=== PATIENT | female | born 1935 | race African-American/Black ===

== ENCOUNTER 2016-08-15 09:08 | Inpatient (IN) | payer MEDICARE, MEDICAID ==
[2016-08-15] MEDS ORDERED: Sodium Chloride 0.9% 1,000 ML IV ONE (09:33)
--- NOTE | 2016-08-15 09:34 | EDM.PDOC ---
ED HPI GI/ABDOMINAL - General Chief Complaint: Gastrointestinal Problem Stated Complaint: BLOOD IN STOOL Time Seen by Provider: 08/15/16 09:30 Source of Information: Reports: Patient, Provider History Limitations: Reports: No limitations - History of Present Illness INITIAL COMMENTS - FREE TEXT/NARRATIVE: 80-year-old female sent over from [facility] where she resides. She reportedly had a dark black stool the day before yesterday which reported to the nursing staff. This precipitated lab test yesterday which revealed apparently a hemoglobin of only 7. This morning about 4:30 5:00 she had another large black stool. No associated cramps. She feels a little more short of breath than usual at rest. 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 [place] remain in place. She is on Plavix and aspirin daily. On Plavix since having the left below knee amputation. She does not take Motrin or Aleve. She reports she had a upper and lower GI endoscopy within the last 3 months which were declared to be normal. She has no problems excepting blood in his had blood transfusions in the past. Consent for blood transfusion to be signed. Symptom Onset Date: 08/13/16 (First report of a black tarry stool to the nursing staff at the [facility].) Symptom Onset Time: 04:50 (Report of second black tarry stool this morning to the nursing staff at the [facility].) Timing/Duration: Reports: Hour(s):, Day(s):, Sudden onset Location: other (I tarry stools x2 in the last 72 hours.) Quality: Reports: other Severity: moderate (Has no pain.) Context: Denies: recent surgery Associated Symptoms (-Female): Reports: bloody stools (Rodri melena stools morning), other. 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 (see below) (None) - Related Data Allergies/ADRs: Allergies Allergy/AdvReac Type Severity Reaction Status Date / Time penicillin Allergy Rash Verified 08/15/16 09:36 sulfamethoxazole Allergy UNKNOWN Verified 08/15/16 09:36 trimethoprim Allergy UNKNOWN Verified 08/15/16 09:36 tuberculin, purified protein Allergy Cannot Verified 08/15/16 09:36 deriva Remember [tuberculin,purif.prot.deriv.] codeine AdvReac Nausea and Verified 08/15/16 09:36 Vomiting Home Meds: Home Meds Aspirin 81 mg PO DAILY 04/29/15 [History] atorvaSTATin [Lipitor] 80 mg PO BEDTIME 04/29/15 [History] Acetaminophen [Tylenol] 650 mg PO Q6HR PRN 01/26/16 [History] Clopidogrel [Plavix] 75 mg PO DAILY 01/26/16 [History] Cyclobenzaprine [Flexeril] 5 mg PO Q6HR PRN 01/26/16 [History] Fluticasone/Salmeterol [Advair 250-50 Diskus] 1 puff IH BID 01/26/16 [History] Sertraline [Zoloft] 100 mg PO DAILY 01/26/16 [History] Verapamil [Calan SR] 240 mg PO BID 01/26/16 [History] Acetaminophen 650 mg PO TID 02/12/16 [History] Gabapentin [Neurontin] 300 mg PO BID 02/12/16 [History] Hydrocodone/Acetaminophen [Kent 5-325] 1 tab PO Q4H PRN 02/12/16 [History] Sennosides [Senna] 1 tab PO BID PRN 02/13/16 [History] Polyethylene Glycol 3350 [MiraLAX] 17 gm PO DAILY PRN #30 packet 02/14/16 [Rx] Acetaminophen [Tylenol] 650 mg PO TID 04/30/16 [History] Bisacodyl [Dulcolax] 10 mg RC DAILY PRN 04/30/16 [History] Furosemide [Lasix] 80 mg PO BID 04/30/16 [History] Hydrocodone/Acetaminophen [Kent 5-325] 1 each PO BEDTIME 04/30/16 [History] Minocycline [Minocin] 100 mg PO BID 04/30/16 [History] buPROPion [buPROPion XL] 150 mg PO DAILY 05/02/16 [History] Insulin Aspart [NovoLOG] 1 dose SQ ASDIRECTED 05/06/16 [History] Insulin Glargine,Hum.Rec.Anlog [Lantus Solostar] 10 units SQ BEDTIME 05/06/16 [ History] Past Medical History HEENT History: Reports: Impaired vision, Other (see below) Other HEENT History: Left "eye disease" Cardiovascular History: Reports: High cholesterol, Hypertension Respiratory History: Reports: Bronchitis, recurrent, COPD Gastrointestinal History: Reports: GERD 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 Has known renal insufficiency as well.) Hematologic History: Reports: Anemia Dermatologic History: Reports: Decubitus ulcer - Infectious Disease History Infectious Disease History: Reports: MRSA - Past Surgical History HEENT Surgical History: Reports: Adenoidectomy, Tonsillectomy Other HEENT Surgeries/Procedures: Adnoidectomy Cardiovascular Surgical History: Reports: Vascular surgery, Other (see below) ( Lt below knee amputation in November 2015 with revision 2 weeks ago.) Other Cardiovascular Surgeries/Procedures: LLE amputee GI Surgical History: Reports: Appendectomy Other Endocrine Surgeries/Procedures: Right femoral popliteal grafting. Done 17 years ago in [place]. Neurological Surgical History: Reports: None Musculoskeletal Surgical History: Reports: Amputation, Other (see below) Other Musculoskeletal Surgeries/Procedures:: left below the knee amputation Dermatological Surgical History: Reports: None Social & Family History - Family History Cardiac: Reports: Aneurysm, Bypass, Hypertension, [place], Stent Respiratory: Reports: Asthma, Sleep apnea Musculoskeletal: Reports: Arthritis Neurological: Reports: Cerebral aneurysms, TIA Psychiatric: Reports: ADHD Endocrine/Metabolic: Reports: Diabetes, type II Oncologic: Reports: Colon - Tobacco Use Smoking Status *Q: Former Smoker (quit 3 months ago. smoked for 40 years .5 ppd) Years of Tobacco use: 40 Packs/Tins Daily: 0.2 Used Tobacco, but Quit: Yes Month Tobacco Last Used: november 2015 Second Hand Smoke Exposure: No - Caffeine Use Caffeine Use: Reports: Coffee, Soda Caffeine Use Comment: seldom drink soda - Alcohol Use Days Per Week of Alcohol Use: 0 - Recreational Drug Use Recreational Drug Use: No - Living Situation & Occupation Living situation: Reports: extended care facility Occupation: disabled ED ROS GENERAL - Review of Systems Review Of Systems: See Below Constitutional: Reports: weakness, fatigue. Denies: fever, chills, malaise, decreased appetite, weight loss HEENT: Reports: No symptoms Respiratory: Reports: Shortness of Breath. Denies: Wheezing, Pleuritic Chest Pain, Cough, Sputum, Hemoptysis Cardiovascular: Reports: Blood pressure problem (Usually has hypertension.). Denies: Chest pain, Dyspnea on exertion, Edema, Lightheadedness, Palpitations Endocrine: Reports: fatigue GI/Abdominal: Reports: Black stool. Denies: Abdominal pain : Reports: frequency Musculoskeletal: Reports: other (Arthritis in her back. She has a left below- knee amputation done November 2015 revision done 2 weeks ago. ) Skin: Reports: bruising (Was easily multiple bruises appreciated on her thighs.) Neurological: Reports: No Symptoms Psychiatric: Reports: No symptoms ED EXAM, GI/ABD - Physical Exam Exam: See Below Exam Limited By: No limitations General Appearance: alert, WD/WN, no apparent distress, other (Tongue is mildly white.) Eyes: bilateral: pale conjunctiva (Mild bilaterally) Ears: normal TMs Throat/Mouth: Normal inspection, Normal lips, Normal oropharynx, Other Head: atraumatic (Tongue is white and the), normocephalic Neck: normal inspection, supple, non-tender, full range of motion. No: lymphadenopathy (L), lymphadenopathy (R) Respiratory/Chest: no respiratory distress, lungs clear, normal breath sounds, no accessory muscle use Cardiovascular: regular rate, rhythm, no edema, no gallop, no murmur, no rub, other (Has good ulnar and radial pulses bilaterally.) GI/Abdominal: normal bowel sounds, soft, non tender, no organomegaly, other ( Abdomen is mildly distended and firm to palpation.) Rectal (Female) Exam: Black stool, Heme - stool Back Exam: normal inspection, full range of motion. No: CVA tenderness (L), CVA tenderness (R) Extremities: normal inspection, normal range of motion, non-tender, no pedal edema, normal capillary refill, other (Has barely palpable pulses dorsalis pedis on the right foot. She has a below-knee amputation on the left side. Bowels are still present in the wound left below-knee amputation and the wound is healing adequately.) Neurological: alert, oriented, CN II-XII intact, normal cognition Psychiatric: normal affect, normal mood Skin Exam: Warm, Intact, Pallor (Mild). No: Normal color EKG INTERPRETATION EKG Date: 08/15/16 Time: 09:50 Rhythm: NSR (First degree AV block.) Rate (beats/min): 86 Ambler: normal P-wave: present QRS: other (Q-wave in lead V1 in your Q-wave in V2. Consider old anteroseptal myocardial infarction. Decreased voltage in the precordial and limb leads compatible COPD pattern.) ST-T: normal QT: prolonged (Minimally.) Course - Vital Signs Last Recorded V/S: Last Vital Signs Temp 36.8 C 08/15/16 12:52 Pulse 92 08/15/16 12:52 Resp 18 08/15/16 12:52 BP 143/94 H 08/15/16 12:52 Pulse Ox 92 L 08/15/16 09:35 Orthostatic Blood Pressure [ 131/57 Supine] Orthostatic Blood Pressure [ 127/61 Sitting] - Orders/Labs/Meds Orders: Active Orders 24 hr Category Date Time Status Admission Status [Patient Status] [ADT] Routine ADT 08/15/16 13:11 Ordered EKG Documentation Completion [RC] STAT Care 08/15/16 09:31 Active Orthostatic Vital Signs [RC] ASDIRECTED Care 08/15/16 09:33 Active PACKED CELLS [RED BLOOD CELLS LP] [BBK] Stat Lab 08/15/16 10:30 Results TYPE AND SCREEN [BBK] Stat Lab 08/15/16 10:30 Results URINALYSIS W/MICROSCOPIC [UA W/MICROSCOPIC] [URIN] Stat Lab 08/15/16 11:57 Results Labs: Laboratory Tests 08/15/16 08/15/16 08/15/16 Range/Units 10:30 10:30 10:30 WBC 6.43 (3.98-10.04) K/mm3 RBC 3.01 L (3.98-5.22) M/mm3 Hgb 7.4 L (11.2-15.7) gm/L Hct 24.4 L (34.1-44.9) % MCV 81.1 (79.4-94.8) fl MCH 24.6 L (25.6-32.2) pg MCHC 30.3 L (32.2-35.5) g/dl RDW Std Deviation 49.2 H (36.4-46.3) fL Plt Count 397 H (182-369) K/mm3 MPV 8.7 L (9.4-12.3) fl Neutrophils % (Manual) 68 H (40-60) % Band Neutrophils % 0 (0-10) % Lymphocytes % (Manual) 28 (20-40) % Atypical Lymphs % 0 % Monocytes % (Manual) 2 (2-10) % Eosinophils % (Manual) 1 (0.7-5.8) % Basophils % (Manual) 1 (0.1-1.2) Platelet Estimate Adequate Hypochromasia 1+ slight Microcytosis 1+ slight Target Cells 1+ slight RBC Morph Comment Not Reportable PT 10.7 (8.0-13.0) SECONDS INR 0.98 APTT 25 (22-36) SECONDS Sodium 141 (136-145) mEq/L Potassium 3.9 (3.5-5.1) mEq/L Chloride 105 (98-107) mEq/L Carbon Dioxide 25 (21-32) mEq/L Anion Gap 14.9 (5-15) BUN 45 H (7-18) mg/dL Creatinine 1.9 H (0.55-1.02) mg/dL Est Cr Clr Drug Dosing 19.30 mL/min Estimated GFR (MDRD) 31 (>60) mL/min BUN/Creatinine Ratio 23.7 H (14-18) Glucose 206 H (83-115) mg/dL Calcium 8.7 (8.5-10.1) mg/dL Total Bilirubin 0.2 (0.2-1.0) mg/dL AST 16 (15-37) U/L ALT 19 (14-59) U/L Alkaline Phosphatase 85 (46-116) U/L Troponin I < 0.017 (0.00-0.056) ng/mL C-Reactive Protein 1.4 H* (<1.0) mg/dL B-Natriuretic Peptide (0-100) pg/mL Total Protein 6.6 (6.4-8.2) g/dl Albumin 3.2 L (3.4-5.0) g/dl Globulin 3.4 gm/dL Albumin/Globulin Ratio 0.9 L (1-2) Urine Color (Yellow) Urine Appearance (Clear) Urine pH (5.0-8.0) Ur Specific [place] (1.005-1.030) Urine Protein (Negative) Urine Glucose (UA) (Negative) Urine Ketones (Negative) Urine Occult Blood (Negative) Urine Nitrite (Negative) Urine Bilirubin (Negative) Urine Urobilinogen (0.2-1.0) Ur Leukocyte Esterase (Negative) H. pylori IgG Antibody (NEGATIVE) Blood Type Gel Antibody Screen Crossmatch 08/15/16 08/15/16 08/15/16 Range/Units 10:30 10:30 10:30 WBC (3.98-10.04) K/mm3 RBC (3.98-5.22) M/mm3 Hgb (11.2-15.7) gm/L Hct (34.1-44.9) % MCV (79.4-94.8) fl MCH (25.6-32.2) pg MCHC (32.2-35.5) g/dl RDW Std Deviation (36.4-46.3) fL Plt Count (182-369) K/mm3 MPV (9.4-12.3) fl Neutrophils % (Manual) (40-60) % Band Neutrophils % (0-10) % Lymphocytes % (Manual) (20-40) % Atypical Lymphs % % Monocytes % (Manual) (2-10) % Eosinophils % (Manual) (0.7-5.8) % Basophils % (Manual) (0.1-1.2) Platelet Estimate Hypochromasia Microcytosis Target Cells RBC Morph Comment PT (8.0-13.0) SECONDS INR APTT (22-36) SECONDS Sodium (136-145) mEq/L Potassium (3.5-5.1) mEq/L Chloride (98-107) mEq/L Carbon Dioxide (21-32) mEq/L Anion Gap (5-15) BUN (7-18) mg/dL Creatinine (0.55-1.02) mg/dL Est Cr Clr Drug Dosing mL/min Estimated GFR (MDRD) (>60) mL/min BUN/Creatinine Ratio (14-18) Glucose (83-115) mg/dL Calcium (8.5-10.1) mg/dL Total Bilirubin (0.2-1.0) mg/dL AST (15-37) U/L ALT (14-59) U/L Alkaline Phosphatase (46-116) U/L Troponin I (0.00-0.056) ng/mL C-Reactive Protein (<1.0) mg/dL B-Natriuretic Peptide 266 H (0-100) pg/mL Total Protein (6.4-8.2) g/dl Albumin (3.4-5.0) g/dl Globulin gm/dL Albumin/Globulin Ratio (1-2) Urine Color (Yellow) Urine Appearance (Clear) Urine pH (5.0-8.0) Ur Specific [place] (1.005-1.030) Urine Protein (Negative) Urine Glucose (UA) (Negative) Urine Ketones (Negative) Urine Occult Blood (Negative) Urine Nitrite (Negative) Urine Bilirubin (Negative) Urine Urobilinogen (0.2-1.0) Ur Leukocyte Esterase (Negative) H. pylori IgG Antibody Negative (NEGATIVE) Blood Type O POSITIVE Gel Antibody Screen Negative Crossmatch See Detail 08/15/16 Range/Units 11:57 WBC (3.98-10.04) K/mm3 RBC (3.98-5.22) M/mm3 Hgb (11.2-15.7) gm/L Hct (34.1-44.9) % MCV (79.4-94.8) fl MCH (25.6-32.2) pg MCHC (32.2-35.5) g/dl RDW Std Deviation (36.4-46.3) fL Plt Count (182-369) K/mm3 MPV (9.4-12.3) fl Neutrophils % (Manual) (40-60) % Band Neutrophils % (0-10) % Lymphocytes % (Manual) (20-40) % Atypical Lymphs % % Monocytes % (Manual) (2-10) % Eosinophils % (Manual) (0.7-5.8) % Basophils % (Manual) (0.1-1.2) Platelet Estimate Hypochromasia Microcytosis Target Cells RBC Morph Comment PT (8.0-13.0) SECONDS INR APTT (22-36) SECONDS Sodium (136-145) mEq/L Potassium (3.5-5.1) mEq/L Chloride (98-107) mEq/L Carbon Dioxide (21-32) mEq/L Anion Gap (5-15) BUN (7-18) mg/dL Creatinine (0.55-1.02) mg/dL Est Cr Clr Drug Dosing mL/min Estimated GFR (MDRD) (>60) mL/min BUN/Creatinine Ratio (14-18) Glucose (83-115) mg/dL Calcium (8.5-10.1) mg/dL Total Bilirubin (0.2-1.0) mg/dL AST (15-37) U/L ALT (14-59) U/L Alkaline Phosphatase (46-116) U/L Troponin I (0.00-0.056) ng/mL C-Reactive Protein (<1.0) mg/dL B-Natriuretic Peptide (0-100) pg/mL Total Protein (6.4-8.2) g/dl Albumin (3.4-5.0) g/dl Globulin gm/dL Albumin/Globulin Ratio (1-2) Urine Color Yellow (Yellow) Urine Appearance Clear (Clear) Urine pH 6.5 (5.0-8.0) Ur Specific [place] 1.020 (1.005-1.030) Urine Protein Negative (Negative) Urine Glucose (UA) Negative (Negative) Urine Ketones Negative (Negative) Urine Occult Blood Negative (Negative) Urine Nitrite Negative (Negative) Urine Bilirubin Negative (Negative) Urine Urobilinogen 0.2 (0.2-1.0) Ur Leukocyte Esterase Trace H (Negative) H. pylori IgG Antibody (NEGATIVE) Blood Type Gel Antibody Screen Crossmatch Meds: Medications Discontinued Medications Generic Name Dose Route Start Last Admin Trade Name Freq PRN Reason Stop Dose Admin Sodium Chloride 1,000 mls @ 500 mls/hr 08/15/16 09:33 08/15/16 10:44 Normal Saline IV 08/15/16 11:32 500 mls/hr ONETIME ONE Administration Sodium Chloride Confirm 08/15/16 11:55 Normal Saline Administered 08/15/16 11:56 Dose 500 mls @ as directed .ROUTE .ST-MED ONE - Radiology Interpretation Free Text/Narrative:: 80-year-old female presents to the ED from [facility] where she was discovered to have a hemoglobin of only 7 yesterday and had a further black tarry stool earlier this morning. She had one the day prior as well. She is on Plavix and on aspirin daily. Does not use Motrin or to Aleve. It is believed therefore she likely suffered a upper GI bleed. She reports endoscopy of both upper and lower GI tracts were carried out about 3 months ago and no abnormalities were identified. Plan routine labs to be done crossmatched for 4 units of packed RBCs sees. She has no contraindications to receiving blood transfusion consent will be signed. I believe it'll be normal saline at 500 mils per hour. - Re-Assessments/Exams Free Text/Narrative Re-Assessment/Exam: 08/15/16 11:12 chest x-ray done portably reveals moderate cardiomegaly. There is a tortuous thoracic aorta. Visualized portions of lung corbin appear clear. Hemoglobin is reported been reported at 7.4. White count 6.43. Differential pending platelets are good at 397,000. Coags show PT of 10.7 INR 0.98 PTT is 25. The remainder the labs are pending. 08/15/16 11:22 chemistry reveals a sodium of 141 potassium of 3.9. Anion gap is 14.9 BUN is elevated at 45 creatinine is 1.9 EGFR is 3190 stage III chronic kidney disease. Glucose is 206 now. CRP is 1.4. 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 08/15/16 13:13 spoke with and not production lapping machine operator hospitalist and the patient will be admitted to the [facility] surgery floor on telemetry. ID is currently available to begin transfusions Departure - Departure Time of Disposition: 13:14 Disposition: Admitted As Inpatient 68 Condition: fair, serious Clinical Impression: Gastrointestinal hemorrhage Qualifiers: GI bleed type/associated pathology: unspecified gastrointestinal hemorrhage type Qualified Code(s): K92.2 - Gastrointestinal hemorrhage, unspecified Referrals: Kalpesh Pak MD [Primary Care Provider] - Forms: ED Department Discharge - My Orders Last 24 Hours: My Active Orders 08/15/16 09:31 EKG Documentation Completion [RC] STAT 08/15/16 09:33 Orthostatic Vital Signs [RC] ASDIRECTED 08/15/16 10:30 PACKED CELLS [RED BLOOD CELLS LP] [BBK] Stat TYPE AND SCREEN [BBK] Stat 08/15/16 11:57 URINALYSIS W/MICROSCOPIC [UA W/MICROSCOPIC] [URIN] Stat 08/15/16 13:11 Admission Status [Patient Status] [ADT] Routine - Assessment/Plan Last 24 Hours: My Active Orders 08/15/16 09:31 EKG Documentation Completion [RC] STAT 08/15/16 09:33 Orthostatic Vital Signs [RC] ASDIRECTED 08/15/16 10:30 PACKED CELLS [RED BLOOD CELLS LP] [BBK] Stat TYPE AND SCREEN [BBK] Stat 08/15/16 11:57 URINALYSIS W/MICROSCOPIC [UA W/MICROSCOPIC] [URIN] Stat 08/15/16 13:11 Admission Status [Patient Status] [ADT] Routine
--- NOTE | 2016-08-15 11:30 | CR ---
Chest: Portable view of the chest was obtained. Comparison: Previous chest x-ray of 01/26/16. Heart size appears within normal limits for portable technique. Tortuous thoracic aorta is seen. Lungs are clear were no acute infiltrates. Bony structures are grossly intact. Impression: 1. Nothing acute is identified on portable chest x-ray. Diagnostic code #2
[2016-08-15] MEDS ORDERED: Sodium Chloride 0.9% 500 ML ONE (11:55)
--- NOTE | 2016-08-15 12:33 | PCM.HP ---
H&P History of Present Illness - General Date of Service: 08/15/16 Source of Information: Patient, Old records, Provider, RN notes reviewed History Limitations: Reports: Physical impairment - History of Present Illness Initial Comments - Free Text/Narative: This is a 80 yo AA female with significant past medical hx/o who is known to me from previous admission, comes in today with complaints of black tarry stools and was found anemic with a Hgb level of 7. He admits to some shortness of breath, generalized weakness and fatigue. Patient was admitted back in April with similar presentation. She received blood transfusions and underwent EGD without abnormal findings. Patient is currently on ASA/Plavix for her CAD/HLD. She denies being on any anticoags or taking over the counter NSAIDs. Patient is full code. - Related Data Allergies/Adverse Reactions: Allergies Allergy/AdvReac Type Severity Reaction Status Date / Time penicillin Allergy Rash Verified 08/15/16 15:32 sulfamethoxazole Allergy UNKNOWN Verified 08/15/16 15:32 trimethoprim Allergy UNKNOWN Verified 08/15/16 15:32 tuberculin, purified protein Allergy Cannot Verified 08/15/16 15:32 deriva Remember [tuberculin,purif.prot.deriv.] codeine AdvReac Nausea and Verified 08/15/16 15:32 Vomiting Home Medications: Home Meds Aspirin 81 mg PO DAILY 04/29/15 [History] atorvaSTATin [Lipitor] 80 mg PO BEDTIME 04/29/15 [History] Acetaminophen [Tylenol] 650 mg PO Q6HR PRN 01/26/16 [History] Clopidogrel [Plavix] 75 mg PO DAILY 01/26/16 [History] Cyclobenzaprine [Flexeril] 5 mg PO Q6HR PRN 01/26/16 [History] Sertraline [Zoloft] 50 mg PO DAILY 01/26/16 [History] Verapamil [Calan SR] 240 mg PO BID 01/26/16 [History] Gabapentin [Neurontin] 300 mg PO BID 02/12/16 [History] Hydrocodone/Acetaminophen [[place] 5-325] 1 tab PO Q4H PRN 02/12/16 [History] Sennosides [Senna] 1 tab PO BID PRN 02/13/16 [History] Polyethylene Glycol 3350 [MiraLAX] 17 gm PO DAILY PRN #30 packet 02/14/16 [Rx] Bisacodyl [Dulcolax] 10 mg RC DAILY PRN 04/30/16 [History] Furosemide [Lasix] 80 mg PO BID 04/30/16 [History] Hydrocodone/Acetaminophen [[place] 5-325] 1 each PO BEDTIME 04/30/16 [History] Insulin Glargine,Hum.Rec.Anlog [Lantus Solostar] 14 units SQ DAILY 05/06/16 [ History] Budesonide/Formoterol [Symbicort 160-4.5 MCG] 2 puff INH BID 08/15/16 [History] Sennosides [Senna] 1 tab PO BID 08/15/16 [History] buPROPion [Wellbutrin] 37.5 mg PO BID 08/15/16 [History] Past Medical History HEENT History: Reports: Impaired vision, Other (see below) Other HEENT History: Left "eye disease" Cardiovascular History: Reports: High cholesterol, Hypertension Respiratory History: Reports: Bronchitis, recurrent, COPD Gastrointestinal History: Reports: GERD [employer] History: Reports: Musculoskeletal History: Reports: Osteoarthritis Neurological History: Reports: Neuropathy, diabetic Psychiatric History: Reports: None Endocrine/Metabolic History: Reports: Diabetes, type II, Obesity/BMI 30+, Other (see below) (Has resulted in severe peripheral vascular disease with 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 Has known renal insufficiency as well.) Hematologic History: Reports: Anemia Dermatologic History: Reports: Decubitus ulcer - Infectious Disease History Infectious Disease History: Reports: MRSA - Past Surgical History HEENT Surgical History: Reports: Adenoidectomy, Tonsillectomy Other HEENT Surgeries/Procedures: Adnoidectomy Cardiovascular Surgical History: Reports: Vascular surgery, Other (see below) ( Lt below knee amputation in November 2015 with revision 2 weeks ago.) Other Cardiovascular Surgeries/Procedures: LLE amputee GI Surgical History: Reports: Appendectomy Other Endocrine Surgeries/Procedures: Right femoral popliteal grafting. Done 17 years ago in [place]. Neurological Surgical History: Reports: None Musculoskeletal Surgical History: Reports: Amputation, Other (see below) Other Musculoskeletal Surgeries/Procedures:: left below the knee amputation Dermatological Surgical History: Reports: None Social & Family History - Family History Cardiac: Reports: Aneurysm, Bypass, Hypertension, MT, Stent Respiratory: Reports: Asthma, Sleep apnea Musculoskeletal: Reports: Arthritis Neurological: Reports: Cerebral aneurysms, TIA Psychiatric: Reports: ADHD Endocrine/Metabolic: Reports: Diabetes, type II Oncologic: Reports: Colon - Tobacco Use Smoking Status *Q: Former Smoker (quit 3 months ago. smoked for 40 years .5 ppd) Years of Tobacco use: 40 Packs/Tins Daily: 0.2 Used Tobacco, but Quit: Yes Month Tobacco Last Used: november 2015 Tobacco Use Comment: Occasionally smokes "1-2 PUFFS" off of someone's cigarette if she is around another smoker. Second Hand Smoke Exposure: No - Caffeine Use Caffeine Use: Reports: Coffee, Soda Caffeine Use Comment: seldom drink soda - Alcohol Use Days Per Week of Alcohol Use: 0 - Recreational Drug Use Recreational Drug Use: No - Living Situation & Occupation Living situation: Reports: extended care facility Occupation: disabled H&P Review of Systems - Review of Systems: Review Of Systems: See Below General: Reports: weakness, fatigue. Denies: fever, chills HEENT: Reports: no symptoms Pulmonary: Reports: Shortness of Breath Cardiovascular: Reports: blood pressure problem. Denies: chest pain, palpitations, dyspnea on exertion, lightheadedness, syncope Gastrointestinal: Reports: Black stool. Denies: Abdominal pain, Hematochezia, Nausea, Vomiting Genitourinary: Reports: frequency Musculoskeletal: Reports: no symptoms Skin: Denies: pallor, rash, erythema Psychiatric: Denies: depression, anxiety, hallucinations, suicidal ideation Neurological: Reports: Difficulty Walking, Gait Disturbance. Denies: Confusion , Dizziness, Seizure, Syncope Hematologic/Lymphatic: Reports: anemia, easy bleeding. Denies: easy bruising Immunologic: Reports: no symptoms Exam - Exam Exam: See Below - Vital Signs Vital Signs: Last Vital Signs Temp 36.8 C 08/15/16 12:14 Pulse 91 08/15/16 12:14 Resp 18 08/15/16 12:14 BP 128/55 L 08/15/16 12:14 Pulse Ox 92 L 08/15/16 09:35 Orthostatic Blood Pressure [ 131/57 Supine] Orthostatic Blood Pressure [ 127/61 Sitting] Weight: 83.461 kg - Exam General: alert, oriented, cooperative, mild distress, lethargic, other (Obese) HEENT: Conjunctiva clear, EACs clear, Hearing intact, Mucosa moist & pink, Nares patent, Normal nasal septum, Posterior pharynx clear, Pupils equal, Pupils reactive Neck: supple, trachea midline, 2+ carotid pulse wo bruit, full range of motion Lungs: Clear to auscultation, Normal respiratory effort Cardiovascular: regular rate, regular rhythm Abdomen: normal bowel sounds, soft. No: organomegaly (Female) Exam: Deferred Rectal (Female) Exam: Deferred Back Exam: normal inspection, decreased range of motion Extremities: normal inspection, normal pulses, other (left leg amputation). No : clubbing, cyanosis, calf tenderness, edema Peripheral Pulses: 2+: posterior tibial (R), dorsalis pedis (R) Skin: warm, dry, intact Neuro Extensive - Mental Status: oriented x3, normal cognition, memory intact Neuro Extensive - Motor, Sensory, Reflexes: CN II-XII intact, abnormal gait Psychiatric: alert, normal affect, normal mood - Patient Data Lab Results last 24 hrs: Laboratory Results - last 24 hr 08/15/16 08/15/16 08/15/16 Range/Units 10:30 10:30 10:30 WBC 6.43 (3.98-10.04) K/mm3 RBC 3.01 L (3.98-5.22) M/mm3 Hgb 7.4 L (11.2-15.7) gm/L Hct 24.4 L (34.1-44.9) % MCV 81.1 (79.4-94.8) fl MCH 24.6 L (25.6-32.2) pg MCHC 30.3 L (32.2-35.5) g/dl RDW Std Deviation 49.2 H (36.4-46.3) fL Plt Count 397 H (182-369) K/mm3 MPV 8.7 L (9.4-12.3) fl Neutrophils % (Manual) 68 H (40-60) % Band Neutrophils % 0 (0-10) % Lymphocytes % (Manual) 28 (20-40) % Atypical Lymphs % 0 % Monocytes % (Manual) 2 (2-10) % Eosinophils % (Manual) 1 (0.7-5.8) % Basophils % (Manual) 1 (0.1-1.2) Platelet Estimate Adequate Hypochromasia 1+ slight Microcytosis 1+ slight Target Cells 1+ slight RBC Morph Comment Not Reportable PT 10.7 (8.0-13.0) SECONDS INR 0.98 APTT 25 (22-36) SECONDS Sodium 141 (136-145) mEq/L Potassium 3.9 (3.5-5.1) mEq/L Chloride 105 (98-107) mEq/L Carbon Dioxide 25 (21-32) mEq/L Anion Gap 14.9 (5-15) BUN 45 H (7-18) mg/dL Creatinine 1.9 H (0.55-1.02) mg/dL Est Cr Clr Drug Dosing 19.30 mL/min Estimated GFR (MDRD) 31 (>60) mL/min BUN/Creatinine Ratio 23.7 H (14-18) Glucose 206 H (83-115) mg/dL Calcium 8.7 (8.5-10.1) mg/dL Total Bilirubin 0.2 (0.2-1.0) mg/dL AST 16 (15-37) U/L ALT 19 (14-59) U/L Alkaline Phosphatase 85 (46-116) U/L Troponin I < 0.017 (0.00-0.056) ng/mL C-Reactive Protein 1.4 H* (<1.0) mg/dL B-Natriuretic Peptide (0-100) pg/mL Total Protein 6.6 (6.4-8.2) g/dl Albumin 3.2 L (3.4-5.0) g/dl Globulin 3.4 gm/dL Albumin/Globulin Ratio 0.9 L (1-2) H. pylori IgG Antibody (NEGATIVE) Blood Type Gel Antibody Screen Crossmatch 08/15/16 08/15/16 08/15/16 Range/Units 10:30 10:30 10:30 WBC (3.98-10.04) K/mm3 RBC (3.98-5.22) M/mm3 Hgb (11.2-15.7) gm/L Hct (34.1-44.9) % MCV (79.4-94.8) fl MCH (25.6-32.2) pg MCHC (32.2-35.5) g/dl RDW Std Deviation (36.4-46.3) fL Plt Count (182-369) K/mm3 MPV (9.4-12.3) fl Neutrophils % (Manual) (40-60) % Band Neutrophils % (0-10) % Lymphocytes % (Manual) (20-40) % Atypical Lymphs % % Monocytes % (Manual) (2-10) % Eosinophils % (Manual) (0.7-5.8) % Basophils % (Manual) (0.1-1.2) Platelet Estimate Hypochromasia Microcytosis Target Cells RBC Morph Comment PT (8.0-13.0) SECONDS INR APTT (22-36) SECONDS Sodium (136-145) mEq/L Potassium (3.5-5.1) mEq/L Chloride (98-107) mEq/L Carbon Dioxide (21-32) mEq/L Anion Gap (5-15) BUN (7-18) mg/dL Creatinine (0.55-1.02) mg/dL Est Cr Clr Drug Dosing mL/min Estimated GFR (MDRD) (>60) mL/min BUN/Creatinine Ratio (14-18) Glucose (83-115) mg/dL Calcium (8.5-10.1) mg/dL Total Bilirubin (0.2-1.0) mg/dL AST (15-37) U/L ALT (14-59) U/L Alkaline Phosphatase (46-116) U/L Troponin I (0.00-0.056) ng/mL C-Reactive Protein (<1.0) mg/dL B-Natriuretic Peptide 266 H (0-100) pg/mL Total Protein (6.4-8.2) g/dl Albumin (3.4-5.0) g/dl Globulin gm/dL Albumin/Globulin Ratio (1-2) H. pylori IgG Antibody Negative (NEGATIVE) Blood Type O POSITIVE Gel Antibody Screen Negative Crossmatch See Detail Result Diagrams: 08/15/16 10:30 08/15/16 10:30 *Q Meaningful Use (ADM) - VTE *Q VTE Criteria *Q: - Stroke *Q Stroke Criteria *Q: - AMI *Q AMI Criteria *Q: Problem List Initiated/Reviewed/Updated: Yes Orders Last 24hrs: Active Orders 24 hr Category Date Time Status EKG Documentation Completion [RC] STAT Care 08/15/16 09:31 Active Orthostatic Vital Signs [RC] ASDIRECTED Care 08/15/16 09:33 Active PACKED CELLS [RED BLOOD CELLS LP] [BBK] Stat Lab 08/15/16 10:30 Results TYPE AND SCREEN [BBK] Stat Lab 08/15/16 10:30 Results URINALYSIS W/MICROSCOPIC [UA W/MICROSCOPIC] [URIN] Stat Lab 08/15/16 12:20 Ordered Assessment/Plan Comment:: Assessment/Plan: Acute: Anemia 2/2 GI Bleed - No hx/o hemorrhoids or diverticulosis - This is her 2nd episode - Hgb is 7.4 - She was admitted on 04/30/2016 with similar presentation; had an EGD with benign findings - Was on NSAIDs, Plavix and ASA in the past; now she is only on ASA/Plavix - Consulted Dr. Ferrara for further evla GI Bleed - 4 units of PRBC has been ordered for her while in ED - Hold antiplatelet for now - Will monitor H/H - GS consult Chronic: Impaired Vision CAD w/ Stents HLD HTN COPD GERD PVD CKD Stage 4 OA/Muscle Spasm DM w/ Neuropathy Hx/o Decubitus Ulcer S/p Left Leg Amputation (BKA) Anxiety/Depression Plan: Admit to Med-Surg Routine AM Labs Resume Home Meds Accu-check and ISS AM/HS Hold ASA and Plavix DVT ppx: SCDs GI ppx: PPI Consult Dr. Ferrara PT/OT consult SW/CM for d/c planning Code status:1
[2016-08-15] MEDS ORDERED: Albuterol/Ipratropium 3.0-0.5 MG/3 ML Neb Soln NEB PRN (13:37)
[2016-08-15] MEDS ORDERED: Polyethylene Glycol 3350 Powder 17 GM Packet PO PRN ×2 (13:37→13:46)
[2016-08-15] MEDS ORDERED: Bisacodyl 5 MG Tab PO PRN (13:37)
[2016-08-15] MEDS ORDERED: Acetaminophen 325 MG Tab PO PRN ×2 (13:37→13:46)
[2016-08-15] MEDS ORDERED: HYDROmorphone 0.5 MG/0.5 ML Syringe IVPUSH PRN (13:37)
[2016-08-15] MEDS ORDERED: Ondansetron 4 MG/2 ML SDV IV PRN (13:37)
[2016-08-15] MEDS ORDERED: Acetaminophen/HYDROcodone 325-5 MG Tab PO PRN ×2 (13:37→13:46)
[2016-08-15] MEDS ORDERED: Promethazine 12.5 MG in Sodium Chloride 0.9% 50 ML IV PRN (13:37)
[2016-08-15] MEDS ORDERED: Dextrose 5%-0.45% NaCl 1,000 ML IV SCH (13:45)
[2016-08-15] MEDS ORDERED: Bisacodyl 10 MG Supp RECTAL PRN (13:46)
[2016-08-15] MEDS ORDERED: Cyclobenzaprine 10 MG Tab PO PRN (13:46)
[2016-08-15] MEDS ORDERED: Sennosides 8.6 MG Tab PO PRN (13:46)
--- NOTE | 2016-08-15 16:00 | PCM.SURGPN ---
- General Info Date of Service: 08/15/16 - Patient Data Vitals - most recent: Last Vital Signs Temp 98.5 F 08/15/16 14:37 Pulse 89 08/15/16 14:37 Resp 16 08/15/16 14:37 BP 145/76 H 08/15/16 14:37 Pulse Ox 97 08/15/16 14:37 Weight - most recent: 85.445 kg I&O - last 24 hours: Intake & Output 08/14/16 08/15/16 08/15/16 23:59 07:59 15:59 Intake Total 317 Balance 317 Med Orders - Current: Current Medications Acetaminophen (Tylenol) 650 mg PO Q4H PRN PRN Reason: Pain (Mild 1-3)/fever Acetaminophen/Hydrocodone Bitart ([place] 325-5 Mg) 1 tab PO Q4H PRN PRN Reason: Pain (moderate 4-6) Acetaminophen/Hydrocodone Bitart ([place] 325-5 Mg) 1 tab PO BEDTIME VIKRAM Albuterol/Ipratropium (Duoneb 3.0-0.5 Mg/3 Ml) 3 ml NEB Q4H PRN PRN Reason: Shortness Of Breath/wheezing Bisacodyl (Dulcolax) 5 mg PO DAILY PRN PRN Reason: Constipation Bisacodyl (Dulcolax) 10 mg RECTAL DAILY PRN PRN Reason: Constipation Bupropion HCl (Wellbutrin Xl) 37.5 mg PO BID VIKRAM Bupropion HCl (Wellbutrin) 37.5 mg PO BID VIKRAM Cyclobenzaprine HCl (Flexeril) 5 mg PO Q6H PRN PRN Reason: Muscle Spasm Furosemide (Lasix) 80 mg PO BID VIKRAM Gabapentin (Neurontin) 300 mg PO BID [facility] Hydromorphone HCl (Dilaudid) 0.25 mg IVPUSH Q2H PRN PRN Reason: Pain (severe 7-10) Promethazine HCl 12.5 mg/ (Sodium Chloride) 50.5 mls @ 100 mls/hr IV Q6H PRN PRN Reason: Nausea/Vomiting Dextrose/Sodium Chloride (Dextrose 5%-1/2 Ns) 1,000 mls @ 125 mls/hr IV ASDIRECTED [facility] Insulin Detemir (Levemir) 7 unit SUBCUT BID VIKRAM Mometasone Furoate/Formoterol Fumar (Dulera 200-5 Mcg) 0 puff IH BID VIKRAM Ondansetron HCl (Zofran) 4 mg IV Q6H PRN PRN Reason: Nausea/Vomiting Pantoprazole Sodium (Protonix Iv) 40 mg IV Q12HR VIKRAM Polyethylene Glycol (Miralax) 17 gm PO DAILY PRN PRN Reason: Constipation Rosuvastatin Calcium (Crestor) 20 mg PO DAILY@1500 [facility] Senna (Senna) 8.6 mg PO BID PRN PRN Reason: Constipation Senna (Senna) 8.6 mg PO BID VIKRAM Senna/Docusate Sodium (Senna Plus) 1 tab PO BID PRN PRN Reason: Constipation Sertraline HCl (Zoloft) 50 mg PO DAILY VIKRAM Temazepam (Restoril) 7.5 mg PO BEDTIME PRN PRN Reason: Sleep Verapamil HCl (Calan Sr) 240 mg PO BID VIKRAM Discontinued Medications Acetaminophen (Tylenol) 650 mg PO Q6HR PRN PRN Reason: Pain Acetaminophen/Hydrocodone Bitart ([place] 325-5 Mg) 1 tab PO Q4H PRN PRN Reason: Pain (severe 7-10) Sodium Chloride (Normal Saline) 1,000 mls @ 500 mls/hr IV ONETIME ONE Stop: 08/15/16 11:32 Last Admin: 08/15/16 10:44 Dose: 500 mls/hr Sodium Chloride (Normal Saline) Confirm Administered Dose 500 mls @ as directed .ROUTE .STK-MED ONE Stop: 08/15/16 11:56 Polyethylene Glycol (Miralax) 17 gm PO DAILY PRN PRN Reason: Constipation - Problem List Review Problem List Initiated/Reviewed/Updated: Yes - My Orders Last 24 Hours: Active Orders 24 hr Category Date Time Status Antiembolic Devices [RC] PER UNIT ROUTINE Care 08/15/16 13:42 Active Height and Weight [RC] DAILY Care 08/15/16 13:37 Active Intake and Output [RC] QSHIFT Care 08/15/16 13:40 Active Notify Provider Consults [RC] ASDIRECTED Care 08/15/16 13:20 Active Oxygen Therapy [RC] PRN Care 08/15/16 13:37 Active RT Aerosol Therapy [RC] .PRN Care 08/15/16 13:42 Active Up With Assistance [RC] ASDIRECTED Care 08/15/16 13:37 Active Up ad Sendy [RC] ASDIRECTED Care 08/15/16 13:37 Active VTE/DVT Education [RC] PER UNIT ROUTINE Care 08/15/16 13:37 Active Vital Signs [RC] Q4H Care 08/15/16 13:37 Active Consult to Case Management [CONS] Routine Cons 08/15/16 13:42 Active Consult to Physician [CONS] Routine Cons 08/15/16 13:20 Active Consult to Project Manager Finance [CONS] Routine Cons 08/15/16 13:42 Active Consult to Spiritual Care [CONS] Routine Cons 08/15/16 13:42 Active OT Evaluation and Treatment [CONS] Routine Cons 08/15/16 13:42 Active PT Evaluation and Treatment [CONS] Routine Cons 08/15/16 13:42 Active Nothing per Oral After Midnight Diet [DIET] Diet 08/15/16 Dinner Active Nothing per Oral Now Diet [DIET] Diet 08/15/16 Lunch Active BASIC METABOLIC PANEL,BMP [CHEM] AM Lab 08/16/16 05:11 Ordered BASIC METABOLIC PANEL,BMP [CHEM] AM Lab 08/17/16 05:11 Ordered BASIC METABOLIC PANEL,BMP [CHEM] AM Lab 08/18/16 05:11 Ordered BASIC METABOLIC PANEL,BMP [CHEM] AM Lab 08/19/16 05:11 Ordered BASIC METABOLIC PANEL,BMP [CHEM] AM Lab 08/20/16 05:11 Ordered CBC WITH AUTO DIFF [HEME] AM Lab 08/16/16 05:11 Ordered CBC WITH AUTO DIFF [HEME] AM Lab 08/17/16 05:11 Ordered CBC WITH AUTO DIFF [HEME] AM Lab 08/18/16 05:11 Ordered CBC WITH AUTO DIFF [HEME] AM Lab 08/19/16 05:11 Ordered CBC WITH AUTO DIFF [HEME] AM Lab 08/20/16 05:11 Ordered MAGNESIUM [CHEM] AM Lab 08/16/16 05:11 Ordered MAGNESIUM [CHEM] AM Lab 08/17/16 05:11 Ordered MAGNESIUM [CHEM] AM Lab 08/18/16 05:11 Ordered MAGNESIUM [CHEM] AM Lab 08/19/16 05:11 Ordered MAGNESIUM [CHEM] AM Lab 08/20/16 05:11 Ordered MAGNESIUM [CHEM] AM Lab 08/21/16 05:11 Ordered Acetaminophen [Tylenol] Med 08/15/16 13:37 Active 650 mg PO Q4H PRN Acetaminophen/HYDROcodone [[place] 325-5 MG] Med 08/15/16 21:00 Active 1 tab PO BEDTIME Acetaminophen/HYDROcodone [[place] 325-5 MG] Med 08/15/16 13:37 Active 1 tab PO Q4H PRN Albuterol/Ipratropium [DuoNeb 3.0-0.5 MG/3 ML] Med 08/15/16 13:37 Active 3 ml NEB Q4H PRN Bisacodyl [Dulcolax] Med 08/15/16 13:46 Active 10 mg RECTAL DAILY PRN Bisacodyl [Dulcolax] Med 08/15/16 13:37 Active 5 mg PO DAILY PRN Cyclobenzaprine [Flexeril] Med 08/15/16 13:46 Active 5 mg PO Q6H PRN Dextrose 5%-0.45% NaCl [Dextrose 5%-1/2 NS] 1,000 ml Med 08/15/16 13:45 Active IV ASDIRECTED Docusate Sodium/Sennosides [Senna Plus] Med 08/15/16 13:37 Active 1 tab PO BID PRN Furosemide [Lasix] Med 08/15/16 21:00 Active 80 mg PO BID Gabapentin [Neurontin] Med 08/15/16 21:00 Active 300 mg PO BID HYDROmorphone [Dilaudid] Med 08/15/16 13:37 Active 0.25 mg IVPUSH Q2H PRN Insulin Detemir [Levemir] Med 08/15/16 21:00 Active 7 unit SUBCUT BID Mometasone/Formoterol [Dulera 200-5 MCG] Med 08/15/16 21:00 Active 0 puff IH BID Ondansetron [Zofran] Med 08/15/16 13:37 Active 4 mg IV Q6H PRN Pantoprazole [Protonix IV] Med 08/15/16 21:00 Active 40 mg IV Q12HR Polyethylene Glycol 3350 [MiraLAX] Med 08/15/16 13:37 Active 17 gm PO DAILY PRN Promethazine [Phenergan] 12.5 mg Med 08/15/16 13:37 Active Sodium Chloride 0.9% [Normal Saline] 50 ml IV Q6H Rosuvastatin [Crestor] Med 08/15/16 15:00 Active 20 mg PO DAILY@1500 Sennosides [Senna] Med 08/15/16 21:00 Active 8.6 mg PO BID Sennosides [Senna] Med 08/15/16 13:46 Active 8.6 mg PO BID PRN Sertraline [Zoloft] Med 08/16/16 09:00 Active 50 mg PO DAILY Temazepam [Restoril] Med 08/15/16 21:00 Active 7.5 mg PO BEDTIME PRN Verapamil [Calan SR] Med 08/15/16 21:00 Active 240 mg PO BID buPROPion [Wellbutrin XL] Med 08/15/16 21:00 Pending 37.5 mg PO BID buPROPion [Wellbutrin] Med 08/15/16 21:00 Ordered 37.5 mg PO BID Sequential Compression Device [OM.PC] Per Unit Routine Oth 08/15/16 13:40 Ordered Resuscitation Status Routine Resus Stat 08/15/16 13:37 Ordered Medication Orders Acetaminophen (Tylenol) 650 mg PO Q4H PRN PRN Reason: Pain (Mild 1-3)/fever Acetaminophen/Hydrocodone Bitart ([place] 325-5 Mg) 1 tab PO Q4H PRN PRN Reason: Pain (moderate 4-6) Acetaminophen/Hydrocodone Bitart ([place] 325-5 Mg) 1 tab PO BEDTIME [facility]KRAM Albuterol/Ipratropium (Duoneb 3.0-0.5 Mg/3 Ml) 3 ml NEB Q4H PRN PRN Reason: Shortness Of Breath/wheezing Bisacodyl (Dulcolax) 5 mg PO DAILY PRN PRN Reason: Constipation Bisacodyl (Dulcolax) 10 mg RECTAL DAILY PRN PRN Reason: Constipation Bupropion HCl (Wellbutrin Xl) 37.5 mg PO BID VIKRAM Bupropion HCl (Wellbutrin) 37.5 mg PO BID [facility]KR[facility] Cyclobenzaprine HCl (Flexeril) 5 mg PO Q6H PRN PRN Reason: Muscle Spasm Furosemide (Lasix) 80 mg PO BID VIKR[facility] Gabapentin (Neurontin) 300 mg PO BID [facility] Hydromorphone HCl (Dilaudid) 0.25 mg IVPUSH Q2H PRN PRN Reason: Pain (severe 7-10) Promethazine HCl 12.5 mg/ (Sodium Chloride) 50.5 mls @ 100 mls/hr IV Q6H PRN PRN Reason: Nausea/Vomiting Dextrose/Sodium Chloride (Dextrose 5%-1/2 Ns) 1,000 mls @ 125 mls/hr IV ASDIRECTED [facility] Insulin Detemir (Levemir) 7 unit SUBCUT BID [facility] Mometasone Furoate/Formoterol Fumar (Dulera 200-5 Mcg) 0 puff IH BID [facility] Ondansetron HCl (Zofran) 4 mg IV Q6H PRN PRN Reason: Nausea/Vomiting Pantoprazole Sodium (Protonix Iv) 40 mg IV Q12HR [facility] Polyethylene Glycol (Miralax) 17 gm PO DAILY PRN PRN Reason: Constipation Rosuvastatin Calcium (Crestor) 20 mg PO DAILY@1500 [facility] Senna (Senna) 8.6 mg PO BID PRN PRN Reason: Constipation Senna (Senna) 8.6 mg PO BID [facility] Senna/Docusate Sodium (Senna Plus) 1 tab PO BID PRN PRN Reason: Constipation Sertraline HCl (Zoloft) 50 mg PO DAILY [facility] Temazepam (Restoril) 7.5 mg PO BEDTIME PRN PRN Reason: Sleep Verapamil HCl (Calan Sr) 240 mg PO BID VIKRAM - Plan Plan (Free Text/Narrative):: surgical consults dictated JASON
[2016-08-15] MEDS: Rosuvastatin 10 MG Tab PO SCH (16:29)
[2016-08-15] MEDS: Formoterol/Mometasone 200-5 MCG 8.8 GM Inhaler IH SCH (20:20)
[2016-08-15] MEDS ORDERED: Insulin Aspart 100 Units/ML 3 ML Pen SUBCUT SCH (21:00)
[2016-08-15] MEDS ORDERED: Temazepam 7.5 MG Cap PO PRN (21:00)
[2016-08-15] MEDS ORDERED: Sodium Chloride 0.9% 100 ML ONE (21:02)
[2016-08-15] MEDS: Pantoprazole 40 MG Vial IV SCH (21:18)
[2016-08-15] MEDS: Sennosides 8.6 MG Tab PO SCH (21:32)
[2016-08-15] MEDS: Gabapentin 300 MG Cap PO SCH (21:32)
[2016-08-15] MEDS: Acetaminophen/HYDROcodone 325-5 MG Tab PO SCH (21:33)
[2016-08-15] MEDS: Verapamil 240 MG Tab.ER PO SCH (21:33)
[2016-08-15] MEDS: Furosemide 80 MG Tab PO SCH (21:33)
[2016-08-15] MEDS: BUPROPION 75 MG PO SCH (21:35)
[2016-08-15] MEDS: Insulin Detemir 100 Units/ML 3 ML Pen SUBCUT SCH (21:36)
[2016-08-15] MEDS ORDERED: 50% Dextrose in Water 50 ML Syringe IVPUSH PRN (22:14)
[2016-08-16] MEDS: Insulin Aspart 100 Units/ML 3 ML Pen SUBCUT SCH ×4 (06:53→21:03)
[2016-08-16] MEDS: Formoterol/Mometasone 200-5 MCG 8.8 GM Inhaler IH SCH ×2 (08:40→21:13)
[2016-08-16] MEDS: Verapamil 240 MG Tab.ER PO SCH ×2 (08:59→20:57)
[2016-08-16] MEDS: Gabapentin 300 MG Cap PO SCH ×2 (09:01→20:57)
[2016-08-16] MEDS: Insulin Detemir 100 Units/ML 3 ML Pen SUBCUT SCH ×2 (09:02→21:01)
[2016-08-16] MEDS: Sertraline 50 MG Tab PO SCH (09:02)
[2016-08-16] MEDS: Sennosides 8.6 MG Tab PO SCH ×2 (09:02→20:57)
[2016-08-16] MEDS: Furosemide 80 MG Tab PO SCH ×2 (09:02→20:57)
[2016-08-16] MEDS: Pantoprazole 40 MG Vial IV SCH ×2 (09:03→20:56)
--- NOTE | 2016-08-16 09:20 | PCM.PN ---
- General Info Date of Service: 08/16/16 Subjective Update: Follow up Functional Status: Reports: pain controlled, tolerating diet, urinating. Denies : new symptoms - Review of Systems General: Denies: Fever, Weakness, Fatigue, Malaise, Chills HEENT: Reports: no symptoms Pulmonary: Denies: shortness of breath Cardiovascular: Denies: Chest Pain Gastrointestinal: Denies: Abdominal pain, Nausea, Vomiting Genitourinary: Reports: no symptoms Musculoskeletal: Reports: no symptoms Skin: Reports: no symptoms Neurological: Reports: Pre-Existing Deficit, Difficulty Walking, Gait Disturbance. Denies: Dizziness, Seizure, Weakness Psychiatric: Denies: depression, anxiety, hallucinations Systems Review Comment:: No overnight or acute issues. Her Hgb is stable at 11.9. No active bleed reported. She has no new complaints. - Patient Data Vitals - most recent: Last Vital Signs Temp 36.9 C 08/16/16 04:06 Pulse 73 08/16/16 04:06 Resp 18 08/16/16 04:06 BP 110/87 08/16/16 04:06 Pulse Ox 94 L 08/16/16 04:06 Weight - most recent: 84.867 kg I&O - last 24 hours: Intake & Output 08/15/16 08/16/16 08/16/16 22:59 06:59 14:59 Intake Total 1133 1000 Output Total 650 Balance 1133 350 Lab Results last 24 hrs: Laboratory Results - last 24 hr 08/15/16 08/16/16 08/16/16 Range/Units 21:08 05:08 05:08 WBC 7.38 (3.98-10.04) K/mm3 RBC 4.45 (3.98-5.22) M/mm3 Hgb 11.9 (11.2-15.7) gm/L Hct 36.3 (34.1-44.9) % MCV 81.6 (79.4-94.8) fl MCH 26.7 (25.6-32.2) pg MCHC 32.8 (32.2-35.5) g/dl RDW Std Deviation 48.4 H (36.4-46.3) fL Plt Count 334 (182-369) K/mm3 MPV 8.8 L (9.4-12.3) fl Neut % (Auto) 60.2 (34.0-71.1) % Lymph % (Auto) 32.2 (19.3-51.7) % [place] % (Auto) 7.0 (4.7-12.5) % Eos % (Auto) 0 L (0.7-5.8) Baso % (Auto) 0.3 (0.1-1.2) % Neut # 4.44 (1.56-6.13) K/mm3 Lymph # 2.38 (1.18-3.74) K/mm3 [place] # 0.52 H (0.24-0.36) K/mm3 Eos # 0.00 L (0.04-0.36) K/mm3 Baso # 0.02 (0.01-0.08) K/mm3 Sodium 143 (136-145) mEq/L Potassium 3.9 (3.5-5.1) mEq/L Chloride 107 (98-107) mEq/L Carbon Dioxide 26 (21-32) mEq/L Anion Gap 13.9 (5-15) BUN 39 H (7-18) mg/dL Creatinine 1.5 H (0.55-1.02) mg/dL Est Cr Clr Drug Dosing 24.45 mL/min Estimated GFR (MDRD) 41 (>60) mL/min BUN/Creatinine Ratio 26.0 H (14-18) Glucose 124 H (83-115) mg/dL POC Glucose 116 H (83-110) mg/dL Hemoglobin A1c (4.50-6.20) % Calcium 8.5 (8.5-10.1) mg/dL Magnesium 2.3 (1.8-2.4) mg/dl 08/16/16 08/16/16 Range/Units 05:08 06:22 WBC (3.98-10.04) K/mm3 RBC (3.98-5.22) M/mm3 Hgb (11.2-15.7) gm/L Hct (34.1-44.9) % MCV (79.4-94.8) fl MCH (25.6-32.2) pg MCHC (32.2-35.5) g/dl RDW Std Deviation (36.4-46.3) fL Plt Count (182-369) K/mm3 MPV (9.4-12.3) fl Neut % (Auto) (34.0-71.1) % Lymph % (Auto) (19.3-51.7) % [place] % (Auto) (4.7-12.5) % Eos % (Auto) (0.7-5.8) Baso % (Auto) (0.1-1.2) % Neut # (1.56-6.13) K/mm3 Lymph # (1.18-3.74) K/mm3 [place] # (0.24-0.36) K/mm3 Eos # (0.04-0.36) K/mm3 Baso # (0.01-0.08) K/mm3 Sodium (136-145) mEq/L Potassium (3.5-5.1) mEq/L Chloride (98-107) mEq/L Carbon Dioxide (21-32) mEq/L Anion Gap (5-15) BUN (7-18) mg/dL Creatinine (0.55-1.02) mg/dL Est Cr Clr Drug Dosing mL/min Estimated GFR (MDRD) (>60) mL/min BUN/Creatinine Ratio (14-18) Glucose (83-115) mg/dL POC Glucose 138 H (83-110) mg/dL Hemoglobin A1c 6.60 H (4.50-6.20) % Calcium (8.5-10.1) mg/dL Magnesium (1.8-2.4) mg/dl Med Orders - Current: Current Medications Acetaminophen (Tylenol) 650 mg PO Q4H PRN PRN Reason: Pain (Mild 1-3)/fever Acetaminophen/Hydrocodone Bitart ([place] 325-5 Mg) 1 tab PO Q4H PRN PRN Reason: Pain (moderate 4-6) Acetaminophen/Hydrocodone Bitart ([place] 325-5 Mg) 1 tab PO BEDTIME [facility]KRAM Last Admin: 08/15/16 21:33 Dose: 1 tab Albuterol/Ipratropium (Duoneb 3.0-0.5 Mg/3 Ml) 3 ml NEB Q4H PRN PRN Reason: Shortness Of Breath/wheezing Bisacodyl (Dulcolax) 5 mg PO DAILY PRN PRN Reason: Constipation Bisacodyl (Dulcolax) 10 mg RECTAL DAILY PRN PRN Reason: Constipation Cyclobenzaprine HCl (Flexeril) 5 mg PO Q6H PRN PRN Reason: Muscle Spasm Dextrose/Water (Dextrose 50% In Water) 50 ml IVPUSH ASDIRECTED PRN PRN Reason: Hypoglycemia Furosemide (Lasix) 80 mg PO BID [facility] Last Admin: 08/16/16 09:02 Dose: 80 mg Gabapentin (Neurontin) 300 mg PO BID [facility] Last Admin: 08/16/16 09:01 Dose: 300 mg Hydromorphone HCl (Dilaudid) 0.25 mg IVPUSH Q2H PRN PRN Reason: Pain (severe 7-10) Promethazine HCl 12.5 mg/ (Sodium Chloride) 50.5 mls @ 100 mls/hr IV Q6H PRN PRN Reason: Nausea/Vomiting Insulin Aspart (Novolog) 0 unit SUBCUT QIDACANDBED [facility] PRN Reason: Protocol Last Admin: 08/16/16 06:53 Dose: Not Given Insulin Detemir (Levemir) 7 unit SUBCUT BID [facility] Last Admin: 08/16/16 09:02 Dose: 7 units Mometasone Furoate/Formoterol Fumar (Dulera 200-5 Mcg) 0 puff IH BID [facility] Last Admin: 08/16/16 08:40 Dose: 2 puff Ondansetron HCl (Zofran) 4 mg IV Q6H PRN PRN Reason: Nausea/Vomiting Pantoprazole Sodium (Protonix Iv) 40 mg IV Q12HR [facility] Last Admin: 08/16/16 09:03 Dose: 40 mg Bupropion 75 Mg Tab. (Imm. Rel.) 0 each PO BID [facility] Last Admin: 08/15/16 21:35 Dose: Not Given Polyethylene Glycol (Miralax) 17 gm PO DAILY PRN PRN Reason: Constipation Rosuvastatin Calcium (Crestor) 20 mg PO DAILY@1500 [facility] Last Admin: 08/15/16 16:29 Dose: 20 mg Senna (Senna) 8.6 mg PO BID PRN PRN Reason: Constipation Senna (Senna) 8.6 mg PO BID [facility] Last Admin: 08/16/16 09:02 Dose: 8.6 mg Senna/Docusate Sodium (Senna Plus) 1 tab PO BID PRN PRN Reason: Constipation Sertraline HCl (Zoloft) 50 mg PO DAILY [facility] Last Admin: 08/16/16 09:02 Dose: 50 mg Temazepam (Restoril) 7.5 mg PO BEDTIME PRN PRN Reason: Sleep Verapamil HCl (Calan Sr) 240 mg PO BID [facility] Last Admin: 08/16/16 08:59 Dose: 240 mg Discontinued Medications Acetaminophen (Tylenol) 650 mg PO Q6HR PRN PRN Reason: Pain Acetaminophen/Hydrocodone Bitart ([place] 325-5 Mg) 1 tab PO Q4H PRN PRN Reason: Pain (severe 7-10) Bupropion HCl (Wellbutrin) 37.5 mg PO BID [facility] Sodium Chloride (Normal Saline) 1,000 mls @ 500 mls/hr IV ONETIME ONE Stop: 08/15/16 11:32 Last Admin: 08/15/16 10:44 Dose: 500 mls/hr Sodium Chloride (Normal Saline) Confirm Administered Dose 500 mls @ as directed .ROUTE .STK-MED ONE Stop: 08/15/16 11:56 Last Admin: 08/15/16 16:29 Dose: 250 ml Dextrose/Sodium Chloride (Dextrose 5%-1/2 Ns) 1,000 mls @ 125 mls/hr IV ASDIRECTED [facility] Sodium Chloride (Normal Saline) Confirm Administered Dose 100 mls @ as directed .ROUTE .STK-MED ONE Stop: 08/15/16 21:03 Last Admin: 08/15/16 21:35 Dose: 50 ml Insulin Aspart (Novolog) 0 unit SUBCUT ,21 [facility] PRN Reason: Protocol Last Admin: 08/15/16 21:36 Dose: Not Given Polyethylene Glycol (Miralax) 17 gm PO DAILY PRN PRN Reason: Constipation - Exam General: alert, oriented, cooperative, no acute distress, other (Obese) HEENT: Pupils equal, Pupils reactive, EOMI, Mucous membr. moist/pink Neck: supple, trachea midline, no JVD, no thyromegaly Lungs: Clear to auscultation, Normal respiratory effort Cardiovascular: Regular Rate, Regular Rhythm Abdomen: bowel sounds present, soft, no tenderness, no distension, other (Obese) (Female) Exam: Deferred Back Exam: normal inspection, decreased range of motion Extremities: no edema, normal pulses, no tenderness/swelling, no cyanosis, no calf tenderness, edema, other (Left BKA) Peripheral Pulses: 2+: posterior tibial (R), dorsalis pedis (R) Skin: warm, intact Wound/Incisions: healing well, dressing dry and intact, no drainage Neurological: no new focal deficit Psy/Mental Status: alert, normal affect, normal mood - Problem List Review Problem List Initiated/Reviewed/Updated: Yes - My Orders Last 24 Hours: My Active Orders 08/15/16 13:20 Notify Provider Consults [RC] ASDIRECTED Consult to Physician [CONS] Routine 08/15/16 13:37 Height and Weight [RC] 04 Oxygen Therapy [RC] PRN Up With Assistance [RC] ASDIRECTED Up ad Sendy [RC] ASDIRECTED VTE/DVT Education [RC] PER UNIT ROUTINE Vital Signs [RC] ,15,,03 Acetaminophen [Tylenol] 650 mg PO Q4H PRN Acetaminophen/HYDROcodone [[place] 325-5 MG] 1 tab PO Q4H PRN Albuterol/Ipratropium [DuoNeb 3.0-0.5 MG/3 ML] 3 ml NEB Q4H PRN Bisacodyl [Dulcolax] 5 mg PO DAILY PRN Docusate Sodium/Sennosides [Senna Plus] 1 tab PO BID PRN HYDROmorphone [Dilaudid] 0.25 mg IVPUSH Q2H PRN Ondansetron [Zofran] 4 mg IV Q6H PRN Polyethylene Glycol 3350 [MiraLAX] 17 gm PO DAILY PRN Promethazine [Phenergan] 12.5 mg Sodium Chloride 0.9% [Normal Saline] 50 ml IV Q6H Resuscitation Status Routine 08/15/16 13:40 Intake and Output [RC] 04,16 Sequential Compression Device [OM.PC] Per Unit Routine 08/15/16 13:42 Antiembolic Devices [RC] PER UNIT ROUTINE RT Aerosol Therapy [RC] .PRN Consult to Case Management [CONS] Routine Consult to Product Safety Engineer [CONS] Routine Consult to Spiritual Care [CONS] Routine OT Evaluation and Treatment [CONS] Routine PT Evaluation and Treatment [CONS] Routine 08/15/16 13:46 Bisacodyl [Dulcolax] 10 mg RECTAL DAILY PRN Cyclobenzaprine [Flexeril] 5 mg PO Q6H PRN Sennosides [Senna] 8.6 mg PO BID PRN 08/15/16 15:00 Rosuvastatin [Crestor] 20 mg PO DAILY@1500 08/15/16 21:00 Acetaminophen/HYDROcodone [[place] 325-5 MG] 1 tab PO BEDTIME Furosemide [Lasix] 80 mg PO BID Gabapentin [Neurontin] 300 mg PO BID Insulin Detemir [Levemir] 7 unit SUBCUT BID Mometasone/Formoterol [Dulera 200-5 MCG] 0 puff IH BID Pantoprazole [Protonix IV] 40 mg IV Q12HR Patient's Own Medication [Ptom] 0 each PO BID Sennosides [Senna] 8.6 mg PO BID Temazepam [Restoril] 7.5 mg PO BEDTIME PRN Verapamil [Calan SR] 240 mg PO BID 08/15/16 22:14 Blood Glucose Check, Bedside [RC] QIDACANDBED Dextrose 50% in Water 50 ml IVPUSH ASDIRECTED PRN 08/15/16 Dinner Nothing per Oral After Midnight Diet [DIET] 08/16/16 07:00 Insulin Aspart [NovoLOG] See Protocol SUBCUT QIDACANDBED 08/16/16 09:00 Sertraline [Zoloft] 50 mg PO DAILY 08/17/16 05:11 BASIC METABOLIC PANEL,BMP [CHEM] AM CBC WITH AUTO DIFF [HEME] AM MAGNESIUM [CHEM] AM 08/18/16 05:11 BASIC METABOLIC PANEL,BMP [CHEM] AM CBC WITH AUTO DIFF [HEME] AM MAGNESIUM [CHEM] AM 08/19/16 05:11 BASIC METABOLIC PANEL,BMP [CHEM] AM CBC WITH AUTO DIFF [HEME] AM MAGNESIUM [CHEM] AM 08/20/16 05:11 BASIC METABOLIC PANEL,BMP [CHEM] AM CBC WITH AUTO DIFF [HEME] AM MAGNESIUM [CHEM] AM 08/21/16 05:11 MAGNESIUM [CHEM] AM - Plan Plan:: Assessment/Plan: Acute: Anemia 2/2 GI Bleed - No hx/o hemorrhoids or diverticulosis - This is her 2nd episode - Hgb is 7.4 - She was admitted on 04/30/2016 with similar presentation; had an EGD with benign findings - Was on NSAIDs, Plavix and ASA in the past; now she is only on ASA/Plavix - Consulted Dr. 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
[2016-08-16] MEDS: BUPROPION 75 MG PO SCH ×2 (11:41→21:03)
[2016-08-16] MEDS: Rosuvastatin 10 MG Tab PO SCH (17:51)
[2016-08-16] MEDS: Acetaminophen/HYDROcodone 325-5 MG Tab PO SCH (20:58)
[2016-08-16] MEDS ORDERED: Clopidogrel 75 MG Tab PO SCH (21:00)
[2016-08-17] MEDS: Formoterol/Mometasone 200-5 MCG 8.8 GM Inhaler IH SCH (08:33)
[2016-08-17 09:02] VITALS: BP 150/73
[2016-08-17] MEDS: Insulin Aspart 100 Units/ML 3 ML Pen SUBCUT SCH ×2 (09:02→12:38)
[2016-08-17] MEDS: Sertraline 50 MG Tab PO SCH (09:03)
[2016-08-17] MEDS: Sennosides 8.6 MG Tab PO SCH (09:03)
[2016-08-17] MEDS: Gabapentin 300 MG Cap PO SCH (09:03)
[2016-08-17] MEDS: Furosemide 80 MG Tab PO SCH (09:03)
[2016-08-17] MEDS: Verapamil 240 MG Tab.ER PO SCH (09:03)
[2016-08-17] MEDS: Pantoprazole 40 MG Vial IV SCH (09:06)
[2016-08-17] MEDS: Insulin Detemir 100 Units/ML 3 ML Pen SUBCUT SCH (09:06)
[2016-08-17] MEDS: BUPROPION 75 MG PO SCH (09:07)
--- NOTE | 2016-08-17 12:46 | PCM.DCSUM1 ---
Discharge Summary - Discharge Data Discharge Date: 08/17/16 Discharge Disposition: DC/Tfer to [facility] Condition: Good - Discharge Diagnosis/Problem(s) (1) Anemia SNOMED Code(s): 576843997 ICD Code: D64.9 - ANEMIA, UNSPECIFIED Status: Acute Qualifiers: Anemia type: iron deficiency Iron deficiency anemia type: unspecified iron deficiency Qualified Code(s): D50.9 - Iron deficiency anemia, unspecified (2) Gastrointestinal hemorrhage SNOMED Code(s): 96979195 ICD Code: K92.2 - GASTROINTESTINAL HEMORRHAGE, UNSPECIFIED Status: Acute Qualifiers: GI bleed type/associated pathology: unspecified gastrointestinal hemorrhage type Qualified Code(s): K92.2 - Gastrointestinal hemorrhage, unspecified - Patient Summary/Data Operative Procedure(s) Performed: None Complications: None Consults: Consultations 08/15/16 13:20 Consult to Physician [CONS] Routine 08/15/16 13:42 Consult to Case Management [CONS] Routine Consult to Gang Supervisor [employer] [CONS] Routine Consult to Spiritual Care [CONS] Routine OT Evaluation and Treatment [CONS] Routine PT Evaluation and Treatment [CONS] Routine Hospital Course: This is a 80 yo AA female with significant past medical hx/o who is known to me from previous admission, comes in today with complaints of black tarry stools and was found anemic with a Hgb level of 7. He admits to some shortness of breath, generalized weakness and fatigue. Patient was admitted back in April with similar presentation. She received blood transfusions and underwent EGD without abnormal findings. Patient is currently on ASA/Plavix for her CAD/HLD. She denies being on any anticoags or taking over the counter NSAIDs. On admission she received a total of 4 units of PRBCs and her Hgb immediately improved to 11. Dr. Ferrara was consulted but offered no endoscopic intervention at this time. Patient has done well since admission. She is asymptomatic and her HGb is now at 12. The rest of her chronic medical illness remained stable during this admission. Patient will now be discharged w/o plavix. This was discussed with her PCP, Dr. Pak who agreed with the d/c care plans. She will have a follow up CBC in 1 week. Prior to d/c patient was advised to avoid NSAIDs or any OTC medications containing additional Aspirin (i.e. BCs and Goody's). The patient expressed understanding and in agreement with the plans as discussed above. - Patient Instructions Diet: Heart Healthy Diet, Usual Diet as Tolerated, Diabetic Diet Activity: As Tolerated Driving: Do Not Drive Showering/Bathing: May Shower Wound/Incision Care: Keep Operative Site/Wound Site Clean and Dry Notify Provider of: Fever, Increased Pain, Swelling and Redness, Nausea and/or Vomiting Other/Special Instructions: - Please take all medications as directed. - Avoid NSAIDs. - Do not take plavix. - CBC in 1 week. - Follow up with your PCP in 1 -2 week - Discharge Plan Home Medications: Home Meds Aspirin 81 mg PO DAILY 04/29/15 [History] atorvaSTATin [Lipitor] 80 mg PO BEDTIME 04/29/15 [History] Acetaminophen [Tylenol] 650 mg PO Q6HR PRN 01/26/16 [History] Cyclobenzaprine [Flexeril] 5 mg PO Q6HR PRN 01/26/16 [History] Sertraline [Zoloft] 50 mg PO DAILY 01/26/16 [History] Verapamil [Calan SR] 240 mg PO BID 01/26/16 [History] Gabapentin [Neurontin] 300 mg PO BID 02/12/16 [History] Hydrocodone/Acetaminophen [[place] 5-325] 1 tab PO Q4H PRN 02/12/16 [History] Sennosides [Senna] 1 tab PO BID PRN 02/13/16 [History] Polyethylene Glycol 3350 [MiraLAX] 17 gm PO DAILY PRN #30 packet 02/14/16 [Rx] Bisacodyl [Dulcolax] 10 mg RC DAILY PRN 04/30/16 [History] Furosemide [Lasix] 80 mg PO BID 04/30/16 [History] Hydrocodone/Acetaminophen [[place] 5-325] 1 each PO BEDTIME 04/30/16 [History] Insulin Glargine,Hum.Rec.Anlog [Lantus Solostar] 14 units SQ DAILY 05/06/16 [ History] Budesonide/Formoterol [Symbicort 160-4.5 MCG] 2 puff INH BID 08/15/16 [History] Sennosides [Senna] 1 tab PO BID 08/15/16 [History] buPROPion [Wellbutrin] 37.5 mg PO BID 08/15/16 [History] Patient Handouts: Blood Transfusion, [id number], Gastrointestinal Bleeding, [id number] Referrals: Kalpesh Pak MD [Primary Care Provider] - - Discharge Summary/Plan Comment DC Time >30 min.: Yes (45 mins) Discharge Summary/Plan Comment: Discharge to Home - General Info Date of Service: 08/17/16 Admission Dx/Problem (Free Text: GI Bleed Subjective Update: Follow up Functional Status: Reports: pain controlled, tolerating diet, urinating, new symptoms. Denies: ambulating - Review of Systems General: Denies: Fever, Weakness, Chills HEENT: Reports: no symptoms Pulmonary: Denies: shortness of breath Cardiovascular: Denies: Chest Pain, Palpitations Gastrointestinal: Reports: Flatus. Denies: Abdominal pain, Hematochezia, Melena , Nausea, Vomiting Genitourinary: Reports: no symptoms Musculoskeletal: Reports: no symptoms Skin: Reports: no symptoms Neurological: Reports: Difficulty Walking, Gait Disturbance. Denies: Confusion Psychiatric: Denies: depression, anxiety, hallucinations - Patient Data Vitals - Most Recent: Last Vital Signs Temp 36.7 C 08/17/16 09:01 Pulse 76 08/17/16 09:01 Resp 18 08/17/16 09:01 BP 150/73 H 08/17/16 09:01 Pulse Ox 92 L 08/17/16 09:01 Weight - Most Recent: 84.414 kg I&O - Last 24 hours: Intake & Output 08/16/16 08/17/16 08/17/16 22:59 06:59 14:59 Intake Total 1580 990 210 Output Total 1100 850 Balance 480 140 210 Lab Results - Last 24 hrs: Laboratory Results - last 24 hr 08/16/16 08/16/16 08/17/16 Range/Units 17:19 21:00 05:55 WBC 8.37 (3.98-10.04) K/mm3 RBC 4.38 (3.98-5.22) M/mm3 Hgb 12.0 (11.2-15.7) gm/L Hct 36.5 (34.1-44.9) % MCV 83.3 (79.4-94.8) fl MCH 27.4 (25.6-32.2) pg MCHC 32.9 (32.2-35.5) g/dl RDW Std Deviation 52.4 H (36.4-46.3) fL Plt Count 326 (182-369) K/mm3 MPV 9.1 L (9.4-12.3) fl Neut % (Auto) 61.0 (34.0-71.1) % Lymph % (Auto) 30.2 (19.3-51.7) % [place] % (Auto) 8.4 (4.7-12.5) % Eos % (Auto) 0 L (0.7-5.8) Baso % (Auto) 0.2 (0.1-1.2) % Neut # 5.10 (1.56-6.13) K/mm3 Lymph # 2.53 (1.18-3.74) K/mm3 [place] # 0.70 H (0.24-0.36) K/mm3 Eos # 0.00 L (0.04-0.36) K/mm3 Baso # 0.02 (0.01-0.08) K/mm3 Sodium (136-145) mEq/L Potassium (3.5-5.1) mEq/L Chloride (98-107) mEq/L Carbon Dioxide (21-32) mEq/L Anion Gap (5-15) BUN (7-18) mg/dL Creatinine (0.55-1.02) mg/dL Est Cr Clr Drug Dosing mL/min Estimated GFR (MDRD) (>60) mL/min BUN/Creatinine Ratio (14-18) Glucose (83-115) mg/dL POC Glucose 168 H 144 H (83-110) mg/dL Calcium (8.5-10.1) mg/dL Magnesium (1.8-2.4) mg/dl 08/17/16 08/17/16 08/17/16 Range/Units 05:55 05:57 11:28 WBC (3.98-10.04) K/mm3 RBC (3.98-5.22) M/mm3 Hgb (11.2-15.7) gm/L Hct (34.1-44.9) % MCV (79.4-94.8) fl MCH (25.6-32.2) pg MCHC (32.2-35.5) g/dl RDW Std Deviation (36.4-46.3) fL Plt Count (182-369) K/mm3 MPV (9.4-12.3) fl Neut % (Auto) (34.0-71.1) % Lymph % (Auto) (19.3-51.7) % [place] % (Auto) (4.7-12.5) % Eos % (Auto) (0.7-5.8) Baso % (Auto) (0.1-1.2) % Neut # (1.56-6.13) K/mm3 Lymph # (1.18-3.74) K/mm3 [place] # (0.24-0.36) K/mm3 Eos # (0.04-0.36) K/mm3 Baso # (0.01-0.08) K/mm3 Sodium 138 (136-145) mEq/L Potassium 3.9 (3.5-5.1) mEq/L Chloride 103 (98-107) mEq/L Carbon Dioxide 25 (21-32) mEq/L Anion Gap 13.9 (5-15) BUN 39 H (7-18) mg/dL Creatinine 1.7 H (0.55-1.02) mg/dL Est Cr Clr Drug Dosing 21.57 mL/min Estimated GFR (MDRD) 35 (>60) mL/min BUN/Creatinine Ratio 22.9 H (14-18) Glucose 182 H (83-115) mg/dL POC Glucose 184 H 168 H (83-110) mg/dL Calcium 8.3 L (8.5-10.1) mg/dL Magnesium 2.2 (1.8-2.4) mg/dl Med Orders - Current: Current Medications Acetaminophen (Tylenol) 650 mg PO Q4H PRN PRN Reason: Pain (Mild 1-3)/fever Acetaminophen/Hydrocodone Bitart ([place] 325-5 Mg) 1 tab PO Q4H PRN PRN Reason: Pain (moderate 4-6) Acetaminophen/Hydrocodone Bitart ([place] 325-5 Mg) 1 tab PO BEDTIME [facility]KR[facility] Last Admin: 08/16/16 20:58 Dose: 1 tab Albuterol/Ipratropium (Duoneb 3.0-0.5 Mg/3 Ml) 3 ml NEB Q4H PRN PRN Reason: Shortness Of Breath/wheezing Aspirin (Aspirin) 81 mg PO BEDTIME [facility] Bisacodyl (Dulcolax) 5 mg PO DAILY PRN PRN Reason: Constipation Bisacodyl (Dulcolax) 10 mg RECTAL DAILY PRN PRN Reason: Constipation Cyclobenzaprine HCl (Flexeril) 5 mg PO Q6H PRN PRN Reason: Muscle Spasm Dextrose/Water (Dextrose 50% In Water) 50 ml IVPUSH ASDIRECTED PRN PRN Reason: Hypoglycemia Furosemide (Lasix) 80 mg PO BID [facility] Last Admin: 08/17/16 09:03 Dose: 80 mg Gabapentin (Neurontin) 300 mg PO BID [facility] Last Admin: 08/17/16 09:03 Dose: 300 mg Hydromorphone HCl (Dilaudid) 0.25 mg IVPUSH Q2H PRN PRN Reason: Pain (severe 7-10) Promethazine HCl 12.5 mg/ (Sodium Chloride) 50.5 mls @ 100 mls/hr IV Q6H PRN PRN Reason: Nausea/Vomiting Insulin Aspart (Novolog) 0 unit SUBCUT QIDACANDBED [facility] PRN Reason: Protocol Last Admin: 08/17/16 12:38 Dose: 2 units Insulin Detemir (Levemir) 7 unit SUBCUT BID [facility] Last Admin: 08/17/16 09:06 Dose: 7 units Mometasone Furoate/Formoterol Fumar (Dulera 200-5 Mcg) 0 puff IH BID [facility] Last Admin: 08/17/16 08:33 Dose: 2 puff Ondansetron HCl (Zofran) 4 mg IV Q6H PRN PRN Reason: Nausea/Vomiting Pantoprazole Sodium (Protonix Iv) 40 mg IV Q12HR [facility] Last Admin: 08/17/16 09:06 Dose: 40 mg Bupropion 75 Mg Tab. (Imm. Rel.) 0 each PO BID [facility] Last Admin: 08/17/16 09:07 Dose: Not Given Polyethylene Glycol (Miralax) 17 gm PO DAILY PRN PRN Reason: Constipation Rosuvastatin Calcium (Crestor) 20 mg PO DAILY@1500 [facility] Last Admin: 08/16/16 17:51 Dose: 20 mg Senna (Senna) 8.6 mg PO BID PRN PRN Reason: Constipation Senna (Senna) 8.6 mg PO BID [facility] Last Admin: 08/17/16 09:03 Dose: 8.6 mg Senna/Docusate Sodium (Senna Plus) 1 tab PO BID PRN PRN Reason: Constipation Sertraline HCl (Zoloft) 50 mg PO DAILY [facility] Last Admin: 08/17/16 09:03 Dose: 50 mg Temazepam (Restoril) 7.5 mg PO BEDTIME PRN PRN Reason: Sleep Verapamil HCl (Calan Sr) 240 mg PO BID [facility] Last Admin: 08/17/16 09:03 Dose: 240 mg Discontinued Medications Acetaminophen (Tylenol) 650 mg PO Q6HR PRN PRN Reason: Pain Acetaminophen/Hydrocodone Bitart (Elizabeth 325-5 Mg) 1 tab PO Q4H PRN PRN Reason: Pain (severe 7-10) Aspirin (Aspirin) 81 mg PO DAILY@2100 [facility] Bupropion HCl (Wellbutrin) 37.5 mg PO BID [facility] Clopidogrel Bisulfate (Plavix) 75 mg PO DAILY [facility] Last Admin: 08/16/16 21:31 Dose: Not Given Sodium Chloride (Normal Saline) 1,000 mls @ 500 mls/hr IV ONETIME ONE Stop: 08/15/16 11:32 Last Admin: 08/15/16 10:44 Dose: 500 mls/hr Sodium Chloride (Normal Saline) Confirm Administered Dose 500 mls @ as directed .ROUTE .STK-MED ONE Stop: 08/15/16 11:56 Last Admin: 08/15/16 16:29 Dose: 250 ml Dextrose/Sodium Chloride (Dextrose 5%-1/2 Ns) 1,000 mls @ 125 mls/hr IV ASDIRECTED [facility] Sodium Chloride (Normal Saline) Confirm Administered Dose 100 mls @ as directed .ROUTE .STK-MED ONE Stop: 08/15/16 21:03 Last Admin: 08/15/16 21:35 Dose: 50 ml Insulin Aspart (Novolog) 0 unit SUBCUT 07, [facility] PRN Reason: Protocol Last Admin: 08/15/16 21:36 Dose: Not Given Polyethylene Glycol (Miralax) 17 gm PO DAILY PRN PRN Reason: Constipation - Exam General: Reports: alert, oriented, cooperative, no acute distress, other (Obese) HEENT: Reports: Pupils equal, Pupils reactive, EOMI, Mucous membr. moist/pink Neck: Reports: supple, trachea midline, no JVD, no thyromegaly Lungs: Reports: Normal respiratory effort, Decreased breath sounds Cardiovascular: Reports: Regular Rate, Regular Rhythm Abdomen: Reports: bowel sounds present, no tenderness, no distension (Female) Exam: Deferred Rectal (Female) Exam: Deferred Back Exam: Reports: normal inspection, decreased range of motion Extremities: Reports: no edema, normal pulses, no tenderness/swelling, no clubbing, no cyanosis, no calf tenderness, other (Left BKA) Skin: Reports: warm, dry, intact, other Wound/Incisions: Reports: healing well, dressing dry and intact, no drainage Neurological: Reports: no new focal deficit Psy/Mental Status: Reports: alert, normal affect, normal mood *Q Meaningful Use (DIS) - VTE *Q VTE Criteria *Q: - Stroke *Q Stroke Criteria *Q: - AMI *Q AMI Criteria *Q:
[2016-08-17] MEDS ORDERED: Aspirin 81 MG Tab.Chew PO SCH ×2 (21:00)
--- NOTE | 2016-08-18 12:10 | CONS ---
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 It was revised and she has been on Plavix. She had black tarry stools two days ago and that recurred again this morning and her hemoglobin was 7. She came in, has received 2 units of blood. The reason for the amputation is that of diabetes with an ulcer which developed infection, this ascended in leg. The patient not take any nonsteroidals and has had a problem with black tarry stools in the past, which was worked up about 3 months ago with upper GI endoscopy and colonoscopy. There was a sessile polyp noted in the ascending colon, which was removed and this was done on 05/07/2016. The reason for the procedure was anemia. Anesthesia record is not available. Upper GI was not done. PAST MEDICAL HISTORY: The patient's past medical history is that of impaired vision of left eye, COPD, gastroesophageal reflux, some diabetes with neuropathy, type 2 diabetes, BMI of 30+, and peripheral vascular disease. PAST SURGICAL HISTORY: Tonsillectomy, reported vascular surgery of left lower leg amputation, right femoropopliteal graft done 17 years ago. FAMILY HISTORY: Has a brother with a brain aneurysm. TOBACCO ABUSE: She is a former smoker. REVIEW OF SYSTEMS: No chest pain. Did have some shortness of breath, this is improving. No cough, hoarseness, wheezing, fainting, weakness, numbness, convulsions. No vomiting blood. Just some hematochezia. No hematemesis. No abdominal pain. MEDICATIONS: Per medication reconciliation form. PHYSICAL EXAMINATION: GENERAL: Reveals an alert, cooperative, female. VITAL SIGNS: Show a temperature 98.2, blood pressure 143/94, pulse 95, and respiration rate 16. EYES: Sclerae white. Extraocular muscle motion normal. ORAL CAVITY: Healthy. NECK: Supple. LUNGS: Clear. No rales, rhonchi, fremitus, or dullness. HEART: Tones regular rate. No S3, S4, jugular venous distention. ABDOMEN: Soft. EXTREMITIES: Upper extremities, no angulation deformities. Lower extremities show a left [id number] amputation on the right, unremarkable. No edema. NEUROLOGIC: Cranial nerves 3 through 12 intact. PSYCHIATRIC: Normal. SKIN: Dry. ASSESSMENT: Multiple medical problems, gastrointestinal bleed on Plavix. RECOMMENDATIONS: Transfusion and observation. If continues to bleed, she will probably need recent upper GI endoscopy. Colonoscopy has been done in May, may not be profitable to repeat that. MMELVIE /[id number]
== END 2016-08-17 14:34 | DRG 812 ==
LOC: JD.ED 09:08 → JD.MS 13:11
PROVIDERS: ADMIT Internal Medicine; ATTEND Internal Medicine
PROC: 30233N1 Transfusion of Nonautologous Red Blood Cells into Peripheral Vein, Percutaneous Approach (ICD-10-PCS; principal; 2016-08-15)
DX: D64.9 Anemia, unspecified (principal); K92.1 Melena; K21.9 Gastro-esophageal reflux disease without esophagitis; E78.00 Pure hypercholesterolemia, unspecified; J44.9 Chronic obstructive pulmonary disease, unspecified; M19.90 Unspecified osteoarthritis, unspecified site; E11.40 Type 2 diabetes mellitus with diabetic neuropathy, unspecified; Z79.4 Long term (current) use of insulin; Z89.512 Acquired absence of left leg below knee; Z86.14 Personal history of Methicillin resistant Staphylococcus aureus infection; Z87.891 Personal history of nicotine dependence; Z79.899 Other long term (current) drug therapy; Z88.0 Allergy status to penicillin; Z88.2 Allergy status to sulfonamides; Z88.8 Allergy status to other drugs, medicaments and biological substances; I25.10 Atherosclerotic heart disease of native coronary artery without angina pectoris; I12.9 Hypertensive chronic kidney disease with stage 1 through stage 4 chronic kidney disease, or unspecified chronic kidney disease; N18.3 Chronic kidney disease, stage 3 (moderate); Z95.5 Presence of coronary angioplasty implant and graft; E78.5 Hyperlipidemia, unspecified; F32.9 Major depressive disorder, single episode, unspecified; F41.9 Anxiety disorder, unspecified; D50.9 Iron deficiency anemia, unspecified; R06.02 Shortness of breath; R53.1 Weakness
CPT/HCPCS: 36415; 36430; 71010; 80053; 81001; 83880; 84484; 85025; 85610; 85730; 86140; 86677; 86850; 86900; 86901; 86922; 93005; 96360; 96361; 99285; J7040; P9016; 80048; 82962; 83036; 83735; 94640; 94664; 94760; 97161-GP; 97165-GO; 97530-GP; A9270-GY; C9113; J1815-GY; J7030

== ENCOUNTER 2016-12-01 11:47 | Emergency (ER) | payer MEDICARE, MEDICAID ==
[2016-12-01 12:02] VITALS: BP 169/64
[2016-12-01] MEDS ORDERED: Sodium Chloride 0.9% 10 ML Syringe FLUSH PRN (12:39)
--- NOTE | 2016-12-01 12:44 | EDM.PDOC ---
ED HPI GENERAL MEDICAL PROBLEM - General Chief Complaint: Diabetic Complaint Stated Complaint: SENT BY CLINIC Time Seen by Provider: 12/01/16 12:28 Source of Information: Reports: Patient, Provider History Limitations: Reports: No Limitations - History of Present Illness INITIAL COMMENTS - FREE TEXT/NARRATIVE: Patient is a type II diabetic was recently evaluated in the clinic today with concerns of having elevated blood sugar of 593. A1c is also elevated at 12.2. Patient has stated her blood sugars are normally run in the 120s 150s. She did drink a slushy prior to having her blood sugar checked this morning. She offers minimal complaints at this time. Has a cough that is nonproductive Denies any fever/chills, shortness of breath, chest pain, nausea/vomiting, abdominal pain, dysuria, open wounds, rash, diarrhea, or any additional complaints. Patient admits to eating a poor diet that is not following guidelines/suggestions for diabetic patient. States she is taking her insulin as prescribed. She is on additional medications for her diabetes. - Related Data Allergies Allergy/AdvReac Type Severity Reaction Status Date / Time penicillin Allergy Rash Verified 12/01/16 12:02 sulfamethoxazole Allergy UNKNOWN Verified 12/01/16 12:02 trimethoprim Allergy UNKNOWN Verified 12/01/16 12:02 tuberculin, purified protein Allergy Cannot Verified 12/01/16 12:02 deriva Remember [tuberculin,purif.prot.deriv.] codeine AdvReac Nausea and Verified 12/01/16 12:02 Vomiting Home Meds: Home Meds Aspirin 81 mg PO DAILY 04/29/15 [History] atorvaSTATin [Lipitor] 80 mg PO BEDTIME 04/29/15 [History] Acetaminophen [Tylenol] 650 mg PO Q6HR PRN 01/26/16 [History] Sertraline [Zoloft] 50 mg PO DAILY 01/26/16 [History] Verapamil [Calan SR] 240 mg PO BID 01/26/16 [History] Gabapentin [Neurontin] 300 mg PO TID 02/12/16 [History] Sennosides [Senna] 1 tab PO BID PRN 02/13/16 [History] Polyethylene Glycol 3350 [MiraLAX] 17 gm PO DAILY PRN #30 packet 02/14/16 [Rx] Bisacodyl [Dulcolax] 10 mg RC DAILY PRN 04/30/16 [History] Furosemide [Lasix] 80 mg PO BID 04/30/16 [History] Hydrocodone/Acetaminophen [[place] 5-325] 1 each PO BEDTIME 04/30/16 [History] Insulin Glargine,Hum.Rec.Anlog [Lantus Solostar] 14 units SQ BEDTIME 05/06/16 [ History] Budesonide/Formoterol [Symbicort 160-4.5 MCG] 2 puff INH BID 08/15/16 [History] Sennosides [Senna] 1 tab PO BID 08/15/16 [History] buPROPion [Wellbutrin] 37.5 mg PO BID 08/15/16 [History] Fish Oil/[place]-3 Fatty Acids [Fish Oil 1,000 MG] 1 cap PO DAILY 12/01/16 [ History] Past Medical History HEENT History: Reports: Impaired Vision, Other (See Below) Other HEENT History: Left "eye disease" Cardiovascular History: Reports: High Cholesterol, Hypertension Respiratory History: Reports: Bronchitis, Recurrent, COPD Other Respiratory History: Smoked less than a pack of cigarettes a day for 40 years. Has quit smoking cigarettes since entering the [facility] in November 2015. Gastrointestinal History: Reports: [employer] History: Reports: Musculoskeletal History: Reports: Osteoarthritis Neurological History: Reports: Neuropathy, Diabetic Psychiatric History: Reports: None Endocrine/Metabolic History: Reports: Diabetes, Type II, Obesity/BMI 30+, Other (See Below) Hematologic History: Reports: Anemia Dermatologic History: Reports: Decubitus Ulcer - Infectious Disease History Infectious Disease History: Reports: MRSA - Past Surgical History Cardiovascular Surgical History: Reports: Vascular Surgery, Other (See Below) Endocrine Surgical History: Reports: Other (See Below) Musculoskeletal Surgical History: Reports: Amputation, Other (See Below) Social & Family History - Family History Cardiac: Reports: Aneurysm, Bypass, Hypertension, [place], Stent Respiratory: Reports: Asthma, Sleep Apnea Musculoskeletal: Reports: Arthritis Neurological: Reports: Cerebral Aneurysms, TIA Psychiatric: Reports: ADHD Endocrine/Metabolic: Reports: Diabetes, type II Immunologic: Reports: None Oncologic: Reports: Colon - Tobacco Use Smoking Status *Q: Current Every Day Smoker Years of Tobacco use: 40 Packs/Tins Daily: 0.4 Used Tobacco, but Quit: No Month Tobacco Last Used: november 2015 Second Hand Smoke Exposure: No - Caffeine Use Caffeine Use: Reports: Coffee Other Caffeine Use: decaf Caffeine Use Comment: seldom drink soda - Alcohol Use Days Per Week of Alcohol Use: 0 - Recreational Drug Use Recreational Drug Use: No - Living Situation & Occupation Living situation: Reports: Extended Care Facility Occupation: Disabled ED ROS GENERAL - Review of Systems Review Of Systems: See Below Constitutional: Reports: No Symptoms HEENT: Reports: No Symptoms Respiratory: Reports: Cough. Denies: Shortness of Breath, Wheezing, Sputum Cardiovascular: Reports: No Symptoms Endocrine: Reports: High Glucose, Polyuria. Denies: Polydypsia : Reports: Frequency, Urgency. Denies: Dysuria, Hematuria Musculoskeletal: Reports: No Symptoms Skin: Reports: No Symptoms Neurological: Reports: No Symptoms ED EXAM GENERAL NO PERIP PULSE - Physical Exam Exam: See Below Exam Limited By: No Limitations General Appearance: Alert, WD/WN, No Apparent Distress Eye Exam: Bilateral Eye: EOMI, PERRL Ears: Hearing Grossly Normal Nose: Normal Inspection Throat/Mouth: Normal Inspection, Normal Oropharynx, Normal Voice, No Airway Compromise Head: Atraumatic, Normocephalic Neck: Normal Inspection, Supple, Non-Tender, Full Range of Motion Respiratory/Chest: No Respiratory Distress, Lungs Clear, Normal Breath Sounds, No Accessory Muscle Use, Chest Non-Tender Cardiovascular: Normal Peripheral Pulses, Regular Rate, Rhythm GI/Abdominal: Normal Bowel Sounds, Soft, Non-Tender, No Organomegaly, No Distention Back Exam: Normal Inspection, Full Range of Motion. No: CVA Tenderness (L), CVA Tenderness (R) Extremities: Other (Knee amputation to left leg with stop without broken down skin or open wounds. No swelling, redness, pain.) Neurological: Alert, Oriented, Normal Cognition, No Motor/Sensory Deficits Psychiatric: Normal Affect, Normal Mood Skin Exam: Warm, Dry, Intact, Normal Color Course - Vital Signs Last Recorded V/S: Last Vital Signs Temp 97.5 F 12/01/16 11:56 Pulse 76 12/01/16 11:56 Resp 20 12/01/16 11:56 BP 169/64 H 12/01/16 11:56 Pulse Ox 92 L 12/01/16 11:56 - Orders/Labs/Meds Orders: Active Orders 24 hr Category Date Time Status POC Glucose [Blood Glucose Check, Bedside] [] Care 12/01/16 15:41 Active Peripheral IV Care [RC] . DIRECTED Care 12/01/16 12:39 Active Sodium Chloride 0.9% [Saline Flush] Med 12/01/16 12:39 Active 10 ml FLUSH ASDIRECTED PRN Peripheral IV Insertion Adult [OM.PC] Stat Oth 12/01/16 12:39 Ordered Medication Orders Sodium Chloride (Saline Flush) 10 ml FLUSH ASDIRECTED PRN PRN Reason: Keep Vein Open Last Admin: 12/01/16 13:30 Dose: 10 ml Labs: Laboratory Tests 12/01/16 12/01/16 12/01/16 Range/Units 12:42 12:50 13:44 WBC 6.34 (3.98-10.04) K/mm3 RBC 5.09 (3.98-5.22) M/mm3 Hgb 13.8 (11.2-15.7) gm/L Hct 41.5 (34.1-44.9) % MCV 81.5 (79.4-94.8) fl MCH 27.1 (25.6-32.2) pg MCHC 33.3 (32.2-35.5) g/dl RDW Std Deviation 51.4 H (36.4-46.3) fL Plt Count 251 (182-369) K/mm3 MPV 9.3 L (9.4-12.3) fl Neut % (Auto) 59.8 (34.0-71.1) % Lymph % (Auto) 31.5 (19.3-51.7) % [place] % (Auto) 8.2 (4.7-12.5) % Eos % (Auto) 0 L (0.7-5.8) Baso % (Auto) 0.3 (0.1-1.2) % Neut # (Auto) 3.79 (1.56-6.13) K/mm3 Lymph # (Auto) 2.00 (1.18-3.74) K/mm3 Vernon # (Auto) 0.52 H (0.24-0.36) K/mm3 Eos # (Auto) 0.00 L (0.04-0.36) K/mm3 Baso # (Auto) 0.02 (0.01-0.08) K/mm3 VBG pH 7.41 H (7.30-7.40) Sodium (136-145) mEq/L Potassium (3.5-5.1) mEq/L Chloride (98-107) mEq/L Carbon Dioxide (21-32) mEq/L Anion Gap (5-15) BUN (7-18) mg/dL Creatinine (0.55-1.02) mg/dL Est Cr Clr Drug Dosing mL/min Estimated GFR (MDRD) (>60) mL/min BUN/Creatinine Ratio (14-18) Glucose (83-115) mg/dL POC Glucose (83-110) mg/dL Serum Osmolality (280-300) mosm/kg Calcium (8.5-10.1) mg/dL Total Bilirubin (0.2-1.0) mg/dL AST (15-37) U/L ALT (14-59) U/L Alkaline Phosphatase (46-116) U/L Total Protein (6.4-8.2) g/dl Albumin (3.4-5.0) g/dl Globulin gm/dL Albumin/Globulin Ratio (1-2) Urine Color Light yellow (Yellow) Urine Appearance Clear (Clear) Urine pH 6.5 (5.0-8.0) Ur Specific [place] 1.010 (1.005-1.030) Urine Protein Negative (Negative) Urine Glucose (UA) 2+ H (Negative) Urine Ketones Negative (Negative) Urine Occult Blood Trace-lysed H (Negative) Urine Nitrite Negative (Negative) Urine Bilirubin Negative (Negative) Urine Urobilinogen 0.2 (0.2-1.0) Ur Leukocyte Esterase Negative (Negative) Urine RBC 0-5 (0-5) /hpf Urine WBC 0-5 (0-5) /hpf Ur Epithelial Cells 0-5 (0-5) /hpf Urine Bacteria Few (FEW) /hpf Urine Mucus Not seen (FEW) /hpf Ketones (0.0-0.3) mM 12/01/16 12/01/16 12/01/16 Range/Units 13:44 13:44 13:44 WBC (3.98-10.04) K/mm3 RBC (3.98-5.22) M/mm3 Hgb (11.2-15.7) gm/L Hct (34.1-44.9) % MCV (79.4-94.8) fl MCH (25.6-32.2) pg MCHC (32.2-35.5) g/dl RDW Std Deviation (36.4-46.3) fL Plt Count (182-369) K/mm3 MPV (9.4-12.3) fl Neut % (Auto) (34.0-71.1) % Lymph % (Auto) (19.3-51.7) % Vernon % (Auto) (4.7-12.5) % Eos % (Auto) (0.7-5.8) Baso % (Auto) (0.1-1.2) % Neut # (Auto) (1.56-6.13) K/mm3 Lymph # (Auto) (1.18-3.74) K/mm3 Vernon # (Auto) (0.24-0.36) K/mm3 Eos # (Auto) (0.04-0.36) K/mm3 Baso # (Auto) (0.01-0.08) K/mm3 VBG pH (7.30-7.40) Sodium 130 L (136-145) mEq/L Potassium 4.2 (3.5-5.1) mEq/L Chloride 98 (98-107) mEq/L Carbon Dioxide 25 (21-32) mEq/L Anion Gap 11.2 (5-15) BUN 17 (7-18) mg/dL Creatinine 1.5 H (0.55-1.02) mg/dL Est Cr Clr Drug Dosing 25.16 mL/min Estimated GFR (MDRD) 41 (>60) mL/min BUN/Creatinine Ratio 11.3 L (14-18) Glucose 529 H (83-115) mg/dL POC Glucose (83-110) mg/dL Serum Osmolality 299 (280-300) mosm/kg Calcium 9.0 (8.5-10.1) mg/dL Total Bilirubin 0.3 (0.2-1.0) mg/dL AST 16 (15-37) U/L ALT 31 (14-59) U/L Alkaline Phosphatase 124 H (46-116) U/L Total Protein 7.3 (6.4-8.2) g/dl Albumin 3.6 (3.4-5.0) g/dl Globulin 3.7 gm/dL Albumin/Globulin Ratio 1.0 (1-2) Urine Color (Yellow) Urine Appearance (Clear) Urine pH (5.0-8.0) Ur Specific [place] (1.005-1.030) Urine Protein (Negative) Urine Glucose (UA) (Negative) Urine Ketones (Negative) Urine Occult Blood (Negative) Urine Nitrite (Negative) Urine Bilirubin (Negative) Urine Urobilinogen (0.2-1.0) Ur Leukocyte Esterase (Negative) Urine RBC (0-5) /hpf Urine WBC (0-5) /hpf Ur Epithelial Cells (0-5) /hpf Urine Bacteria (FEW) /hpf Urine Mucus (FEW) /hpf Ketones 0.24 (0.0-0.3) mM 12/01/16 12/01/16 Range/Units 15:46 17:05 WBC (3.98-10.04) K/mm3 RBC (3.98-5.22) M/mm3 Hgb (11.2-15.7) gm/L Hct (34.1-44.9) % MCV (79.4-94.8) fl MCH (25.6-32.2) pg MCHC (32.2-35.5) g/dl RDW Std Deviation (36.4-46.3) fL Plt Count (182-369) K/mm3 MPV (9.4-12.3) fl Neut % (Auto) (34.0-71.1) % Lymph % (Auto) (19.3-51.7) % [place] % (Auto) (4.7-12.5) % Eos % (Auto) (0.7-5.8) Baso % (Auto) (0.1-1.2) % Neut # (Auto) (1.56-6.13) K/mm3 Lymph # (Auto) (1.18-3.74) K/mm3 [place] # (Auto) (0.24-0.36) K/mm3 Eos # (Auto) (0.04-0.36) K/mm3 Baso # (Auto) (0.01-0.08) K/mm3 VBG pH (7.30-7.40) Sodium (136-145) mEq/L Potassium (3.5-5.1) mEq/L Chloride (98-107) mEq/L Carbon Dioxide (21-32) mEq/L Anion Gap (5-15) BUN (7-18) mg/dL Creatinine (0.55-1.02) mg/dL Est Cr Clr Drug Dosing mL/min Estimated GFR (MDRD) (>60) mL/min BUN/Creatinine Ratio (14-18) Glucose (83-115) mg/dL POC Glucose 397 H 315 H (83-110) mg/dL Serum Osmolality (280-300) mosm/kg Calcium (8.5-10.1) mg/dL Total Bilirubin (0.2-1.0) mg/dL AST (15-37) U/L ALT (14-59) U/L Alkaline Phosphatase (46-116) U/L Total Protein (6.4-8.2) g/dl Albumin (3.4-5.0) g/dl Globulin gm/dL Albumin/Globulin Ratio (1-2) Urine Color (Yellow) Urine Appearance (Clear) Urine pH (5.0-8.0) Ur Specific [place] (1.005-1.030) Urine Protein (Negative) Urine Glucose (UA) (Negative) Urine Ketones (Negative) Urine Occult Blood (Negative) Urine Nitrite (Negative) Urine Bilirubin (Negative) Urine Urobilinogen (0.2-1.0) Ur Leukocyte Esterase (Negative) Urine RBC (0-5) /hpf Urine WBC (0-5) /hpf Ur Epithelial Cells (0-5) /hpf Urine Bacteria (FEW) /hpf Urine Mucus (FEW) /hpf Ketones (0.0-0.3) mM Meds: Medications Generic Name Dose Route Start Last Admin Trade Name Freq PRN Reason Stop Dose Admin Sodium Chloride 10 ml 12/01/16 12:39 12/01/16 13:30 Saline Flush FLUSH 10 ml ASDIRECTED PRN Administration Keep Vein Open Discontinued Medications Generic Name Dose Route Start Last Admin Trade Name Freq PRN Reason Stop Dose Admin Insulin Human Regular 5 unit 12/01/16 15:50 12/01/16 16:01 Humulin R SUBCUT 12/01/16 15:51 5 units ONETIME ONE Administration Protocol - Re-Assessments/Exams Free Text/Narrative Re-Assessment/Exam: Blood sugar obtained at [facility] today was 593 after patient drank a slushy. A1c is elevated 12.2. Previous A1c was 6.7. She is taking Lantus 14 units at night. Patient admits diet is poor. She does have some increased urination noted with mild polydipsia. Will obtain a CBC, chem 14, UA, serum ketones, serum was mildly, venous pH, and a chest x-ray. Dr. Perez spoke with Dr. Pak with suggestions of utilizing short acting insulin to bring her sugars down and increasing her Lantus to 20 units at at bedtime. He will see her this coming Thursday/. Have patient call for an appointment. 12/01/16 13:39 chest x-ray revealed cardiomegaly with tortuous thoracic aorta. No acute infiltrates. Nothing acute is identified on portable chest x-ray. Final interpretation pending. Reviewed with Dr. Perez. Labs reviewed. Blood sugar elevated at 397. Per low-dose sliding scale protocol ordered 5 units of Humulin subcutaneous. After one hour we will recheck blood sugar. As long as it trending downward will send the patient home with instructions as documented. Patient will be eating upon discharge. Will increase her Lantus to 20 units at at bedtime. This will be a change from 14 units previously prescribed. Point of care blood sugar was 315. Will discharge patient home with instructions as document. Departure - Departure Time of Disposition: 17:20 Disposition: Home, Self-Care 01 Condition: Good Clinical Impression: Hyperglycemia - Discharge Information Instructions: Type 2 Diabetes Mellitus, Adult, [id number] Referrals: Kalpesh Pak MD [Primary Care Provider] - Forms: ED Department Discharge Additional Instructions: As discussed blood sugar was quite elevated today thus prompting you to be admitted to the emergency department to gain further control utilizing short acting insulin. Onset of the insulin is 60 minutes, peak action 60 to 120 minutes, duration 5 to 8 hrs. Will increase lantus dose from 14 units to 20 units starting this evening. Stick with a diabetic diet. Dr. Pak PCP will see you in the clinic this coming Thursday. Call that morningto schedule an appt to be evaluated that day. Recheck your blood sugar in 4 hours and prior to going to bed. If blood sugar is low less than 100 please eat a peanut butter sandwich or some type of food high in protein. If you develop low blood sugar symptoms please return to the ED. Return to the E.D. as needed for any new or worsening symptoms. - My Orders Last 24 Hours: My Active Orders 12/01/16 12:39 Peripheral IV Care [RC] . DIRECTED Sodium Chloride 0.9% [Saline Flush] 10 ml FLUSH ASDIRECTED PRN Peripheral IV Insertion Adult [OM.PC] Stat 12/01/16 15:41 POC Glucose [Blood Glucose Check, Bedside] [RC] - Assessment/Plan Last 24 Hours: My Active Orders 12/01/16 12:39 Peripheral IV Care [RC] . DIRECTED Sodium Chloride 0.9% [Saline Flush] 10 ml FLUSH ASDIRECTED PRN Peripheral IV Insertion Adult [OM.PC] Stat 12/01/16 15:41 POC Glucose [Blood Glucose Check, Bedside] [RC]
--- NOTE | 2016-12-01 14:34 | CR ---
Chest: Portable view of the chest was obtained. Comparison: Previous chest x-ray of 08/15/16. Heart is mildly enlarged. Slight tortuosity of the thoracic aorta is seen. Central lung markings are slightly increased centrally which appear to be stable. Lungs otherwise are clear. Bony structures are grossly intact. Impression: 1. Findings as described above. No significant change is seen from prior study. Diagnostic code #2
[2016-12-01] MEDS ORDERED: Insulin Regular, Human 100 Units/ML 3 ML Vial SUBCUT ONE (15:50)
== END 2016-12-01 17:15 | disposition home or self-care (01) ==
LOC: JD.ED 11:47
DX: E11.65 Type 2 diabetes mellitus with hyperglycemia (principal); E78.00 Pure hypercholesterolemia, unspecified; I10 Essential (primary) hypertension; K21.9 Gastro-esophageal reflux disease without esophagitis; M19.90 Unspecified osteoarthritis, unspecified site; E11.40 Type 2 diabetes mellitus with diabetic neuropathy, unspecified; E66.9 Obesity, unspecified; F17.210 Nicotine dependence, cigarettes, uncomplicated; Z86.2 Personal history of diseases of the blood and blood-forming organs and certain disorders involving the immune mechanism; Z88.0 Allergy status to penicillin; Z88.2 Allergy status to sulfonamides; Z88.5 Allergy status to narcotic agent; Z88.8 Allergy status to other drugs, medicaments and biological substances; Z79.82 Long term (current) use of aspirin; Z79.4 Long term (current) use of insulin
CPT/HCPCS: 36415; 71010; 80053; 81001; 82009; 82800; 82962; 83930; 85025; 96372; 99284; J1817; J7050